=== PATIENT | female | born 1960 ===

== ENCOUNTER 2020-11-24 19:31 | Inpatient (IN) | payer OTHER ==
[~2020-11-24] VITALS: Ht 162.6 cm; Wt 107.0 kg
--- NOTE | 2020-11-24 20:09 | NUR ---
ASSUMED CARE OF PATIENT. PATIENT REPORTS SHE TOOK A HOME COVID TEST AND IT WAS POSTIVE. PT WAS SEEN AT TODAY AND WAS FOUND TO BE 80% RA. PT SENT TO THE ER. FAMILY AT BEDSIDE. EKG DONE DR BAKER HAS SEEN IT. AIRPORT OPERATIONS SPECIALIST ON. NSR NOTED. PULSE OX ON. OXYGEN ON AT 3L NC. VS STABLE. CALL LIGHT IN PLACE. WILL CONTINUE TO MONITOR.
[2020-11-24] MEDS ORDERED: DEXAMETHASONE 4 MG/ML, 1ML IVPush ONE (20:30)
[2020-11-24] MEDS ORDERED: AZITHROMYCIN 500 MG in SODIUM CHLORIDE 0.9% 250 ML IV ONE (20:30)
[2020-11-24 20:32] LABS: BASOPHILS % (AUTO) 0 % (0-1); EOSINOPHILS % (AUTO) 0 % (1-7); LYMPHOCYTES % (AUTO) 24 % (22-44); MEAN CORPUSCULAR HEMOGLOBIN 28.2 pg (27.0-34.8); MEAN CORPUSCULAR HGB CONC 33.4 g/dL (32.4-35.8); MEAN PLATELET VOLUME 7.3 fL (7.4-10.4); MONOCYTES % (AUTO) 5 % (2-9); NEUTROPHILS % (AUTO) 71 % (42-75); PLATELET COUNT 263 x10^3/uL (130-400); RED BLOOD COUNT 4.81 x10^6/uL (3.82-5.3); RED CELL DISTRIBUTION WIDTH 14.5 % (9.6-15.2)
[2020-11-24 20:39] LABS: ALANINE AMINOTRANSFERASE 109 U/L (12-78); ALBUMIN 2.9 g/dL (3.4-5.0); ANION GAP 7 mmol/L (5-15); CALCIUM 8.4 mg/dL (8.5-10.1); CHLORIDE 99 mmol/L (98-107); CREATININE 0.84 mg/dL (0.55-1.02)
[2020-11-24] MEDS ORDERED: DEXAMETHASONE 4 MG/ML, 5ML ONE (20:40)
[2020-11-24 20:43] LABS: ALKALINE PHOSPHATASE 81 U/L (45-117); BILIRUBIN,TOTAL 0.3 mg/dL (0.2-1.0); TOTAL PROTEIN 7.4 g/dL (6.4-8.2); TROPONIN I < 0.015 ng/mL (0.000-0.045)
--- NOTE | 2020-11-24 21:06 | NUR ---
PER DR BAKER NO BLOOD CULTURES
[2020-11-24] MEDS ORDERED: SODIUM CHLORIDE FLUSH 10ML SYR IVF PRN (21:30)
--- NOTE | 2020-11-24 21:33 | NUR ---
HOSPITALIST IN ROOM
--- NOTE | 2020-11-24 21:53 | NUR ---
IVAN: [phone]
[2020-11-24] MEDS ORDERED: PHARMACY MAY ADJ FOR RENAL FX MC PRN (22:00)
[2020-11-24] MEDS ORDERED: GUAIFENESIN/DM 200-20MG, 10ML UDC PO PRN (22:00)
[2020-11-24] MEDS ORDERED: LABETALOL 5MG/ML, 20ML IVPush PRN (22:00)
[2020-11-24] MEDS ORDERED: KETOROLAC 30 MG/1 ML IV PRN (22:00)
[2020-11-24] MEDS ORDERED: ONDANSETRON 2MG/ML, 2ML IVPush PRN (22:00)
[2020-11-24] MEDS ORDERED: MELATONIN 5 MG TABLET PO PRN (22:00)
[2020-11-24] MEDS ORDERED: ACETAMINOPHEN 650 MG SUPP PR PRN (22:00)
--- NOTE | 2020-11-24 22:03 | NUR ---
PT RESTING IN ROOM. VS STABLE. OXYGEN ON. REPORT CALLED INTO JOSE ANTONIO CAREY. CALL LIGHT IN PLACE WILL CONTINUE TO MONITOR.
[2020-11-24] MEDS ORDERED: ACETAMINOPHEN 325 MG TABLET ONE (22:11)
[2020-11-24] MEDS: ACETAMINOPHEN 325 MG TABLET PO PRN (22:14)
--- NOTE | 2020-11-24 22:18 | NUR ---
DR PRABHAKAR AWARE OF VS. PT TO GO TO [facility] NOW. PER PROVIDER NO BLOOD CULTURES NEEDED. VS STABLE. BEAN ROASTER ON. NSR NOTED. CALL LIGHT IN PLACE. WILL CONTINUE TO MONITOR.
[2020-11-24] MEDS ORDERED: REMDESIVIR 200 MG in SODIUM CHLORIDE 0.9% 250 ML IVPB ONE (22:30)
[2020-11-24] MEDS ORDERED: DEXAMETHASONE 4 MG/ML, 1ML IVPush SCH (22:30)
[2020-11-24] MEDS ORDERED: ASCORBIC ACID 500 MG TABLET ONE (22:38)
[2020-11-24] MEDS: ENOXAPARIN 30 MG/0.3 ML SQ SCH (22:43)
[2020-11-24] MEDS: ASCORBIC ACID 500 MG TABLET PO SCH (22:45)
[2020-11-24] MEDS: FAMOTIDINE 20 MG/2 ML IVPush SCH (22:46)
--- NOTE | 2020-11-24 23:28 | NUR ---
REPORT CALLED INTO JOSE ANTONIO WEEKS
[2020-11-25] MEDS: ALBUTEROL-IPRATROPIUM MDI INH INH SCH ×5 (00:10→20:30)
[2020-11-25 00:20] VITALS: BP 118/75
[2020-11-25] MEDS: DEXAMETHASONE 4 MG/ML, 1ML IVPush SCH ×4 (01:43→20:22)
[2020-11-25] MEDS: INSULIN LISPRO 100 UNITS/ML, PEN SQ-INSULIN SCH ×5 (01:43→20:30)
[2020-11-25 06:28] LABS: BASOPHILS % (AUTO) 0 % (0-1); EOSINOPHILS % (AUTO) 0 % (1-7); LYMPHOCYTES % (AUTO) 24 % (22-44); MEAN CORPUSCULAR HEMOGLOBIN 28.5 pg (27.0-34.8); MEAN CORPUSCULAR HGB CONC 33.7 g/dL (32.4-35.8); MEAN PLATELET VOLUME 7.5 fL (7.4-10.4); MONOCYTES % (AUTO) 3 % (2-9); NEUTROPHILS % (AUTO) 73 % (42-75); PLATELET COUNT 257 x10^3/uL (130-400); RED BLOOD COUNT 4.77 x10^6/uL (3.82-5.3); RED CELL DISTRIBUTION WIDTH 14.4 % (9.6-15.2)
[2020-11-25 06:39] LABS: ALBUMIN 2.8 g/dL (3.4-5.0); ANION GAP 8 mmol/L (5-15); CALCIUM 8.6 mg/dL (8.5-10.1); CHLORIDE 102 mmol/L (98-107)
[2020-11-25 06:44] LABS: ALANINE AMINOTRANSFERASE 107 U/L (12-78); ALKALINE PHOSPHATASE 84 U/L (45-117); BILIRUBIN,TOTAL 0.3 mg/dL (0.2-1.0); CREATININE 0.69 mg/dL (0.55-1.02); TOTAL PROTEIN 7.5 g/dL (6.4-8.2)
[2020-11-25] MEDS: ZINC SULFATE 220 MG CAPSULE PO SCH (08:15)
[2020-11-25] MEDS: FAMOTIDINE 20 MG/2 ML IVPush SCH (08:15)
[2020-11-25] MEDS: CHOLECALCIFEROL 5,000u TAB PO SCH (08:16)
[2020-11-25] MEDS: ASCORBIC ACID 500 MG TABLET PO SCH ×2 (08:16→20:22)
[2020-11-25] MEDS: THIAMINE 100MG TABLET PO SCH (08:16)
[2020-11-25 09:11] VITALS: BP 128/82
[2020-11-25] MEDS: FLUTICASONE/VILANTEROL 100-25MCG/INH INH SCH (11:00)
[2020-11-25] MEDS: ENOXAPARIN 30 MG/0.3 ML SQ SCH ×2 (11:00→22:51)
[2020-11-25 12:17] VITALS: BP 130/77
[2020-11-25] MEDS: FAMOTIDINE 20 MG TABLET PO SCH (20:22)
[2020-11-25 20:32] VITALS: BP 121/76
[2020-11-25] MEDS ORDERED: MELATONIN 5 MG TABLET PO SCH (21:00)
[2020-11-25] MEDS: REMDESIVIR 100 MG in SODIUM CHLORIDE 0.9% 250 ML IVPB SCH (22:50)
[2020-11-26] MEDS: DEXAMETHASONE 4 MG/ML, 1ML IVPush SCH ×4 (03:22→20:24)
[2020-11-26 03:37] VITALS: BP 119/75
[2020-11-26] MEDS ORDERED: LORazepam 1MG TABLET PO ONE (06:00)
[2020-11-26] MEDS: ALBUTEROL-IPRATROPIUM MDI INH INH SCH ×4 (06:00→20:24)
[2020-11-26 06:16] LABS: HCT (SEDRATE) 40.1 % (34.6-47.8)
[2020-11-26 06:22] LABS: BASOPHILS % (AUTO) 0 % (0-1); EOSINOPHILS % (AUTO) 0 % (1-7); LYMPHOCYTES % (AUTO) 14 % (22-44); MEAN CORPUSCULAR HEMOGLOBIN 28.5 pg (27.0-34.8); MEAN CORPUSCULAR HGB CONC 33.5 g/dL (32.4-35.8); MEAN PLATELET VOLUME 7.6 fL (7.4-10.4); MONOCYTES % (AUTO) 5 % (2-9); NEUTROPHILS % (AUTO) 81 % (42-75); PLATELET COUNT 337 x10^3/uL (130-400); RED BLOOD COUNT 4.72 x10^6/uL (3.82-5.3); RED CELL DISTRIBUTION WIDTH 14.8 % (9.6-15.2)
[2020-11-26 06:28] LABS: ALBUMIN 2.8 g/dL (3.4-5.0); ANION GAP 10 mmol/L (5-15); CALCIUM 8.7 mg/dL (8.5-10.1); CHLORIDE 103 mmol/L (98-107)
[2020-11-26 06:33] LABS: ALANINE AMINOTRANSFERASE 93 U/L (12-78); ALKALINE PHOSPHATASE 77 U/L (45-117); BILIRUBIN,TOTAL 0.3 mg/dL (0.2-1.0); CREATININE 0.78 mg/dL (0.55-1.02); TOTAL PROTEIN 7.3 g/dL (6.4-8.2)
[2020-11-26 06:36] LABS: C-REACTIVE PROTEIN, QUANT 4.4 mg/dL (0.02-0.49)
[2020-11-26 08:07] VITALS: BP 104/67
[2020-11-26] MEDS: FLUTICASONE/VILANTEROL 100-25MCG/INH INH SCH (08:16)
[2020-11-26] MEDS: ZINC SULFATE 220 MG CAPSULE PO SCH (08:16)
[2020-11-26] MEDS: CHOLECALCIFEROL 5,000u TAB PO SCH (08:16)
[2020-11-26] MEDS: ASCORBIC ACID 500 MG TABLET PO SCH ×2 (08:16→20:24)
[2020-11-26] MEDS: FAMOTIDINE 20 MG TABLET PO SCH ×2 (08:16→20:24)
[2020-11-26] MEDS: THIAMINE 100MG TABLET PO SCH (08:16)
[2020-11-26] MEDS: INSULIN LISPRO 100 UNITS/ML, PEN SQ-INSULIN SCH ×4 (08:25→20:25)
[2020-11-26] MEDS: ENOXAPARIN 30 MG/0.3 ML SQ SCH ×2 (10:58→22:36)
[2020-11-26 15:31] VITALS: BP 127/77
[2020-11-26] MEDS: TEMAZEPAM 15 MG CAPSULE PO PRN (20:24)
[2020-11-26 20:31] VITALS: BP 109/67
[2020-11-26] MEDS: REMDESIVIR 100 MG in SODIUM CHLORIDE 0.9% 250 ML IVPB SCH (22:36)
[2020-11-27] MEDS: DEXAMETHASONE 4 MG/ML, 1ML IVPush SCH ×4 (02:45→20:48)
[2020-11-27 02:46] VITALS: BP 119/72
[2020-11-27] MEDS: ALBUTEROL-IPRATROPIUM MDI INH INH SCH ×4 (05:46→20:54)
[2020-11-27 06:04] LABS: BASOPHILS % (AUTO) 0 % (0-1); EOSINOPHILS % (AUTO) 0 % (1-7); LYMPHOCYTES % (AUTO) 11 % (22-44); MEAN CORPUSCULAR HEMOGLOBIN 28.7 pg (27.0-34.8); MEAN CORPUSCULAR HGB CONC 33.6 g/dL (32.4-35.8); MEAN PLATELET VOLUME 7.2 fL (7.4-10.4); MONOCYTES % (AUTO) 5 % (2-9); NEUTROPHILS % (AUTO) 85 % (42-75); PLATELET COUNT 323 x10^3/uL (130-400); RED BLOOD COUNT 4.42 x10^6/uL (3.82-5.3); RED CELL DISTRIBUTION WIDTH 14.7 % (9.6-15.2)
[2020-11-27 06:18] LABS: CHLORIDE 106 mmol/L (98-107)
[2020-11-27 06:33] LABS: ALANINE AMINOTRANSFERASE 104 U/L (12-78); ALBUMIN 2.6 g/dL (3.4-5.0); ALKALINE PHOSPHATASE 74 U/L (45-117); ANION GAP 9 mmol/L (5-15); BILIRUBIN,TOTAL 0.3 mg/dL (0.2-1.0); CALCIUM 8.4 mg/dL (8.5-10.1); CREATININE 0.72 mg/dL (0.55-1.02); TOTAL PROTEIN 6.5 g/dL (6.4-8.2)
[2020-11-27 07:55] VITALS: BP 134/76
[2020-11-27] MEDS: INSULIN LISPRO 100 UNITS/ML, PEN SQ-INSULIN SCH ×4 (09:23→20:49)
[2020-11-27] MEDS: THIAMINE 100MG TABLET PO SCH (09:28)
[2020-11-27] MEDS: CHOLECALCIFEROL 5,000u TAB PO SCH (09:28)
[2020-11-27] MEDS: ASCORBIC ACID 500 MG TABLET PO SCH ×2 (09:28→20:48)
[2020-11-27] MEDS: FAMOTIDINE 20 MG TABLET PO SCH ×2 (09:28→20:48)
[2020-11-27] MEDS: ZINC SULFATE 220 MG CAPSULE PO SCH (09:29)
[2020-11-27] MEDS: ENOXAPARIN 30 MG/0.3 ML SQ SCH ×2 (09:29→22:33)
[2020-11-27] MEDS: FLUTICASONE/VILANTEROL 100-25MCG/INH INH SCH (09:30)
[2020-11-27] MEDS: ACETAMINOPHEN 325 MG TABLET PO PRN (09:36)
[2020-11-27 13:50] VITALS: BP 128/79
[2020-11-27] MEDS: TEMAZEPAM 15 MG CAPSULE PO PRN ×2 (20:48→23:24)
[2020-11-27] MEDS: INSULIN GLARGINE 100 UNITS/ML, PEN SQ-INSULIN SCH (20:49)
[2020-11-27 20:54] VITALS: BP 134/74
[2020-11-27] MEDS: REMDESIVIR 100 MG in SODIUM CHLORIDE 0.9% 250 ML IVPB SCH (22:33)
[2020-11-28] MEDS: DEXAMETHASONE 4 MG/ML, 1ML IVPush SCH ×4 (02:50→21:15)
[2020-11-28 02:52] VITALS: BP 142/83
[2020-11-28] MEDS: ALBUTEROL-IPRATROPIUM MDI INH INH SCH ×3 (04:54→21:16)
[2020-11-28 05:19] LABS: BASOPHILS % (AUTO) 0 % (0-1); EOSINOPHILS % (AUTO) 0 % (1-7); LYMPHOCYTES % (AUTO) 8 % (22-44); MEAN CORPUSCULAR HEMOGLOBIN 28.4 pg (27.0-34.8); MEAN CORPUSCULAR HGB CONC 33.4 g/dL (32.4-35.8); MEAN PLATELET VOLUME 7.1 fL (7.4-10.4); MONOCYTES % (AUTO) 6 % (2-9); NEUTROPHILS % (AUTO) 85 % (42-75); PLATELET COUNT 333 x10^3/uL (130-400); RED BLOOD COUNT 4.77 x10^6/uL (3.82-5.3); RED CELL DISTRIBUTION WIDTH 14.8 % (9.6-15.2)
[2020-11-28 05:30] LABS: ALBUMIN 2.6 g/dL (3.4-5.0); ANION GAP 8 mmol/L (5-15); CALCIUM 8.8 mg/dL (8.5-10.1); CHLORIDE 105 mmol/L (98-107)
[2020-11-28 05:38] LABS: ALANINE AMINOTRANSFERASE 186 U/L (12-78); ALKALINE PHOSPHATASE 84 U/L (45-117); BILIRUBIN,TOTAL 0.3 mg/dL (0.2-1.0); TOTAL PROTEIN 6.7 g/dL (6.4-8.2)
[2020-11-28 06:05] LABS: HCT (SEDRATE) 40.7 % (34.6-47.8)
[2020-11-28 08:50] VITALS: BP 129/83
[2020-11-28] MEDS: FLUTICASONE/VILANTEROL 100-25MCG/INH INH SCH (10:06)
[2020-11-28] MEDS: ENOXAPARIN 30 MG/0.3 ML SQ SCH ×2 (10:07→21:14)
[2020-11-28] MEDS: FAMOTIDINE 20 MG TABLET PO SCH ×2 (10:07→21:15)
[2020-11-28] MEDS: ZINC SULFATE 220 MG CAPSULE PO SCH (10:07)
[2020-11-28] MEDS: CHOLECALCIFEROL 5,000u TAB PO SCH (10:07)
[2020-11-28] MEDS: THIAMINE 100MG TABLET PO SCH (10:07)
[2020-11-28] MEDS: ASCORBIC ACID 500 MG TABLET PO SCH ×2 (10:07→21:15)
[2020-11-28] MEDS: INSULIN LISPRO 100 UNITS/ML, PEN SQ-INSULIN SCH ×4 (10:08→21:29)
[2020-11-28 15:00] VITALS: BP 133/78
[2020-11-28 20:50] VITALS: BP 135/80
[2020-11-28] MEDS: INSULIN GLARGINE 100 UNITS/ML, PEN SQ-INSULIN SCH (21:28)
[2020-11-28] MEDS: TEMAZEPAM 15 MG CAPSULE PO PRN (21:53)
[2020-11-28] MEDS: REMDESIVIR 100 MG in SODIUM CHLORIDE 0.9% 250 ML IVPB SCH (23:37)
[2020-11-29 02:25] VITALS: BP 128/76
[2020-11-29] MEDS: DEXAMETHASONE 4 MG/ML, 1ML IVPush SCH ×4 (02:38→20:38)
[2020-11-29 05:22] LABS: HCT (SEDRATE) 41.8 % (34.6-47.8)
[2020-11-29 05:30] LABS: BASOPHILS % (AUTO) 0 % (0-1); EOSINOPHILS % (AUTO) 0 % (1-7); LYMPHOCYTES % (AUTO) 10 % (22-44); MEAN CORPUSCULAR HEMOGLOBIN 28.6 pg (27.0-34.8); MEAN CORPUSCULAR HGB CONC 33.7 g/dL (32.4-35.8); MEAN PLATELET VOLUME 7.2 fL (7.4-10.4); MONOCYTES % (AUTO) 7 % (2-9); NEUTROPHILS % (AUTO) 84 % (42-75); PLATELET COUNT 336 x10^3/uL (130-400); RED BLOOD COUNT 4.97 x10^6/uL (3.82-5.3); RED CELL DISTRIBUTION WIDTH 14.6 % (9.6-15.2)
[2020-11-29 05:36] LABS: ALANINE AMINOTRANSFERASE 178 U/L (12-78); ALBUMIN 2.6 g/dL (3.4-5.0); ANION GAP 8 mmol/L (5-15); CALCIUM 8.7 mg/dL (8.5-10.1); CHLORIDE 105 mmol/L (98-107); CREATININE 0.73 mg/dL (0.55-1.02)
[2020-11-29 05:45] LABS: ALKALINE PHOSPHATASE 91 U/L (45-117); BILIRUBIN,TOTAL 0.3 mg/dL (0.2-1.0); C-REACTIVE PROTEIN, QUANT 0.66 mg/dL (0.02-0.49); TOTAL PROTEIN 6.8 g/dL (6.4-8.2)
[2020-11-29] MEDS: ALBUTEROL-IPRATROPIUM MDI INH INH SCH ×4 (06:07→22:35)
[2020-11-29] MEDS: ZINC SULFATE 220 MG CAPSULE PO SCH (08:11)
[2020-11-29] MEDS: CHOLECALCIFEROL 5,000u TAB PO SCH (08:11)
[2020-11-29] MEDS: THIAMINE 100MG TABLET PO SCH (08:12)
[2020-11-29] MEDS: FAMOTIDINE 20 MG TABLET PO SCH ×2 (08:12→20:38)
[2020-11-29] MEDS: ASCORBIC ACID 500 MG TABLET PO SCH ×2 (08:12→20:38)
[2020-11-29] MEDS: INSULIN LISPRO 100 UNITS/ML, PEN SQ-INSULIN SCH ×4 (08:26→22:42)
[2020-11-29 09:19] VITALS: BP 101/56
[2020-11-29] MEDS: ENOXAPARIN 30 MG/0.3 ML SQ SCH ×2 (10:18→20:37)
[2020-11-29] MEDS: FLUTICASONE/VILANTEROL 100-25MCG/INH INH SCH (10:19)
[2020-11-29 13:08] VITALS: BP 106/68
[2020-11-29 15:46] VITALS: BP 116/74
[2020-11-29] MEDS ORDERED: LORazepam 0.5MG TABLET PO ONE (16:30)
[2020-11-29 20:00] VITALS: BP 121/48
[2020-11-29] MEDS: TEMAZEPAM 15 MG CAPSULE PO PRN (20:36)
[2020-11-29] MEDS: INSULIN GLARGINE 100 UNITS/ML, PEN SQ-INSULIN SCH (22:38)
[2020-11-30] MEDS: DEXAMETHASONE 4 MG/ML, 1ML IVPush SCH ×4 (02:29→21:25)
[2020-11-30 02:40] VITALS: BP 118/72
[2020-11-30] MEDS: ALBUTEROL-IPRATROPIUM MDI INH INH SCH ×4 (06:05→21:27)
[2020-11-30 06:15] LABS: BASOPHILS % (AUTO) 0 % (0-1); EOSINOPHILS % (AUTO) 0 % (1-7); LYMPHOCYTES % (AUTO) 9 % (22-44); MEAN CORPUSCULAR HEMOGLOBIN 27.9 pg (27.0-34.8); MEAN CORPUSCULAR HGB CONC 32.9 g/dL (32.4-35.8); MEAN PLATELET VOLUME 7.1 fL (7.4-10.4); MONOCYTES % (AUTO) 6 % (2-9); NEUTROPHILS % (AUTO) 85 % (42-75); PLATELET COUNT 336 x10^3/uL (130-400); RED BLOOD COUNT 5.09 x10^6/uL (3.82-5.3); RED CELL DISTRIBUTION WIDTH 14.5 % (9.6-15.2)
[2020-11-30 06:18] LABS: CHLORIDE 103 mmol/L (98-107)
[2020-11-30 06:31] LABS: ALANINE AMINOTRANSFERASE 141 U/L (12-78); ALBUMIN 2.6 g/dL (3.4-5.0); ALKALINE PHOSPHATASE 88 U/L (45-117); ANION GAP 8 mmol/L (5-15); BILIRUBIN,TOTAL 0.4 mg/dL (0.2-1.0); CALCIUM 8.6 mg/dL (8.5-10.1); TOTAL PROTEIN 6.6 g/dL (6.4-8.2)
[2020-11-30 06:42] VITALS: BP 105/67
[2020-11-30] MEDS ORDERED: LORazepam 2 MG/ML, 1ML IVPush ONE (07:00)
[2020-11-30] MEDS ORDERED: LORazepam 2 MG/ML, 1ML IVPush PRN (07:00)
[2020-11-30] MEDS: ASCORBIC ACID 500 MG TABLET PO SCH ×2 (08:07→21:26)
[2020-11-30] MEDS: THIAMINE 100MG TABLET PO SCH (08:07)
[2020-11-30] MEDS: ZINC SULFATE 220 MG CAPSULE PO SCH (08:07)
[2020-11-30] MEDS: FAMOTIDINE 20 MG TABLET PO SCH ×2 (08:07→21:25)
[2020-11-30] MEDS: FLUTICASONE/VILANTEROL 100-25MCG/INH INH SCH (08:07)
[2020-11-30] MEDS: CHOLECALCIFEROL 5,000u TAB PO SCH (08:07)
[2020-11-30] MEDS: INSULIN LISPRO 100 UNITS/ML, PEN SQ-INSULIN SCH ×4 (08:08→21:36)
[2020-11-30 08:11] LABS: FIO2 88 %
[2020-11-30] MEDS: ENOXAPARIN 30 MG/0.3 ML SQ SCH ×2 (08:17→21:26)
[2020-11-30] MEDS ORDERED: LORazepam 0.5MG TABLET PO PRN ×2 (12:00→18:00)
[2020-11-30 14:20] VITALS: BP 122/75
[2020-11-30] MEDS ORDERED: INSULIN LISPRO 100 UNITS/ML, PEN SQ-INSULIN SCH (16:00)
[2020-11-30 21:00] VITALS: BP 118/72
[2020-11-30] MEDS: TEMAZEPAM 15 MG CAPSULE PO PRN (21:25)
[2020-11-30] MEDS: INSULIN GLARGINE 100 UNITS/ML, PEN SQ-INSULIN SCH (21:37)
[2020-12-01] VITALS (7 sets, daily range): BP systolic 104–148; BP diastolic 58–93
[2020-12-01] MEDS: DEXAMETHASONE 4 MG/ML, 1ML IVPush SCH ×3 (02:57→17:45)
[2020-12-01] MEDS: ALBUTEROL-IPRATROPIUM MDI INH INH SCH ×2 (05:11→12:38)
[2020-12-01 06:21] LABS: MEAN CORPUSCULAR HEMOGLOBIN 28.4 pg (27.0-34.8); MEAN CORPUSCULAR HGB CONC 33.7 g/dL (32.4-35.8); MEAN PLATELET VOLUME 6.7 fL (7.4-10.4); PLATELET COUNT 335 x10^3/uL (130-400); RED BLOOD COUNT 4.95 x10^6/uL (3.82-5.3); RED CELL DISTRIBUTION WIDTH 14.4 % (9.6-15.2)
[2020-12-01 06:24] LABS: HCT (SEDRATE) 41.1 % (34.6-47.8)
[2020-12-01 06:35] LABS: ALBUMIN 2.6 g/dL (3.4-5.0); ANION GAP 8 mmol/L (5-15); CALCIUM 8.5 mg/dL (8.5-10.1); CHLORIDE 101 mmol/L (98-107)
[2020-12-01 06:42] LABS: ALANINE AMINOTRANSFERASE 108 U/L (12-78); ALKALINE PHOSPHATASE 87 U/L (45-117); BILIRUBIN,TOTAL 0.5 mg/dL (0.2-1.0); C-REACTIVE PROTEIN, QUANT 0.25 mg/dL (0.02-0.49); CREATININE 0.73 mg/dL (0.55-1.02); TOTAL PROTEIN 6.5 g/dL (6.4-8.2)
[2020-12-01 06:52] LABS: METAMYELOCYTES# (MANUAL) 0.15 x10^3/uL (0-0); METAMYELOCYTES% (MANUAL) 1 % (0-1)
[2020-12-01 06:53] LABS: <RBC MORPHOLOGY> NORMAL; BAND#(MANUAL) 0.44 x10^3/uL; BANDS%(MANUAL) 3 % (0-7); LYMPH#(MANUAL) 0.88 x10^3/uL (1-3.4); LYMPHS% (MANUAL) 6 % (22-44); MONOS#(MANUAL) 0.44 x10^3/uL (0.3-2.7); MONOS% (MANUAL) 3 % (2-9); SEGS% (MANUAL) 87 % (42-75)
[2020-12-01 06:54] LABS: <PLATELET ESTIMATE> ADEQUATE; <PLT MORPHOLOGY> NORMAL PLT MORPH
[2020-12-01] MEDS: ASCORBIC ACID 500 MG TABLET PO SCH ×2 (08:35→19:55)
[2020-12-01] MEDS: FAMOTIDINE 20 MG TABLET PO SCH ×2 (08:35→19:55)
[2020-12-01] MEDS: ZINC SULFATE 220 MG CAPSULE PO SCH (08:35)
[2020-12-01] MEDS: THIAMINE 100MG TABLET PO SCH (08:35)
[2020-12-01] MEDS: CHOLECALCIFEROL 5,000u TAB PO SCH (08:35)
[2020-12-01] MEDS: FLUTICASONE/VILANTEROL 100-25MCG/INH INH SCH (08:36)
[2020-12-01] MEDS: ENOXAPARIN 30 MG/0.3 ML SQ SCH ×2 (08:36→19:55)
[2020-12-01] MEDS: INSULIN LISPRO 100 UNITS/ML, PEN SQ-INSULIN SCH ×4 (08:40→20:32)
[2020-12-01 14:16] LABS: FIO2 100 %
[2020-12-01] MEDS ORDERED: PHARMACY INSTRUCTION MC PRN (18:00)
[2020-12-01] MEDS: REMDESIVIR 100 MG in SODIUM CHLORIDE 0.9% 250 ML IVPB SCH (18:53)
[2020-12-01] MEDS: FUROSEMIDE 20 MG/2 ML IV SCH (19:54)
[2020-12-01] MEDS: MEROPENEM 1 GM in SODIUM CHLORIDE 0.9% 100 ML IV SCH (19:54)
[2020-12-01] MEDS: LINEZOLID PMX 600MG/300ML 300 ML IV SCH (19:54)
[2020-12-01] MEDS: INSULIN GLARGINE 100 UNITS/ML, PEN SQ-INSULIN SCH (20:01)
[2020-12-01] MEDS: TEMAZEPAM 15 MG CAPSULE PO PRN (21:02)
[2020-12-02] MEDS: MEROPENEM 1 GM in SODIUM CHLORIDE 0.9% 100 ML IV SCH ×3 (01:17→17:12)
[2020-12-02 04:24] LABS: MEAN CORPUSCULAR HEMOGLOBIN 29.2 pg (27.0-34.8); MEAN CORPUSCULAR HGB CONC 34.6 g/dL (32.4-35.8); MEAN PLATELET VOLUME 6.7 fL (7.4-10.4); PLATELET COUNT 340 x10^3/uL (130-400); RED BLOOD COUNT 4.78 x10^6/uL (3.82-5.3); RED CELL DISTRIBUTION WIDTH 14.5 % (9.6-15.2)
[2020-12-02 04:31] LABS: D-DIMER 0.84 ug/mlFEU (0.00-0.52)
[2020-12-02 04:33] LABS: ALANINE AMINOTRANSFERASE 80 U/L (12-78); ALBUMIN 2.5 g/dL (3.4-5.0); ANION GAP 8 mmol/L (5-15); C-REACTIVE PROTEIN, QUANT 0.19 mg/dL (0.02-0.49); CALCIUM 8.2 mg/dL (8.5-10.1); CHLORIDE 102 mmol/L (98-107)
[2020-12-02 04:35] LABS: ALKALINE PHOSPHATASE 96 U/L (45-117); BILIRUBIN,TOTAL 0.4 mg/dL (0.2-1.0)
[2020-12-02 05:22] LABS: <PLATELET ESTIMATE> ADEQUATE; <PLT MORPHOLOGY> NORMAL PLT MORPH; <RBC MORPHOLOGY> NORMAL; BAND#(MANUAL) 1.07 x10^3/uL; BANDS%(MANUAL) 6 % (0-7); EOS#(MANUAL) 0.36 x10^3/uL (0.0-0.4); EOS% (MANUAL) 2 % (1-7); LYMPH#(MANUAL) 1.25 x10^3/uL (1-3.4); LYMPHS% (MANUAL) 7 % (22-44); METAMYELOCYTES# (MANUAL) 0.36 x10^3/uL (0-0); METAMYELOCYTES% (MANUAL) 2 % (0-1); MONOS#(MANUAL) 0.71 x10^3/uL (0.3-2.7); MONOS% (MANUAL) 4 % (2-9); SEG#(MANUAL) 14.06 x10^3/uL (1.8-6.8); SEGS% (MANUAL) 79 % (42-75)
[2020-12-02] MEDS: LINEZOLID PMX 600MG/300ML 300 ML IV SCH ×2 (06:05→17:13)
[2020-12-02] MEDS: INSULIN LISPRO 100 UNITS/ML, PEN SQ-INSULIN SCH ×4 (06:12→21:26)
[2020-12-02] MEDS: DEXAMETHASONE 4 MG/ML, 1ML IVPush SCH (09:07)
[2020-12-02] MEDS: FUROSEMIDE 20 MG/2 ML IV SCH ×2 (09:08→17:12)
[2020-12-02] MEDS: CHOLECALCIFEROL 5,000u TAB PO SCH (09:15)
[2020-12-02] MEDS: ENOXAPARIN 30 MG/0.3 ML SQ SCH (09:15)
[2020-12-02] MEDS: ASCORBIC ACID 500 MG TABLET PO SCH ×2 (09:15→21:22)
[2020-12-02] MEDS: ZINC SULFATE 220 MG CAPSULE PO SCH (09:15)
[2020-12-02] MEDS: THIAMINE 100MG TABLET PO SCH (09:15)
[2020-12-02] MEDS: FAMOTIDINE 20 MG TABLET PO SCH ×2 (09:15→21:23)
[2020-12-02] MEDS: POTASSIUM CHLORIDE 20 MEQ PACKET PO SCH ×2 (10:00→21:22)
[2020-12-02] MEDS: REMDESIVIR 100 MG in SODIUM CHLORIDE 0.9% 250 ML IVPB SCH (18:14)
[2020-12-02] MEDS: LORazepam 1MG TABLET PO PRN (18:18)
[2020-12-02] MEDS: TEMAZEPAM 15 MG CAPSULE PO PRN (21:22)
[2020-12-02] MEDS: ENOXAPARIN 40 MG/0.4 ML SQ SCH (21:23)
[2020-12-02] MEDS: INSULIN GLARGINE 100 UNITS/ML, PEN SQ-INSULIN SCH (21:26)
[2020-12-03] MEDS: MEROPENEM 1 GM in SODIUM CHLORIDE 0.9% 100 ML IV SCH ×3 (02:00→17:04)
[2020-12-03 04:49] LABS: BASOPHILS % (AUTO) 0 % (0-1); EOSINOPHILS % (AUTO) 1 % (1-7); LYMPHOCYTES % (AUTO) 10 % (22-44); MEAN CORPUSCULAR HEMOGLOBIN 28.2 pg (27.0-34.8); MEAN CORPUSCULAR HGB CONC 33.4 g/dL (32.4-35.8); MEAN PLATELET VOLUME 6.7 fL (7.4-10.4); MONOCYTES % (AUTO) 4 % (2-9); NEUTROPHILS % (AUTO) 85 % (42-75); PLATELET COUNT 296 x10^3/uL (130-400); RED BLOOD COUNT 5.22 x10^6/uL (3.82-5.3); RED CELL DISTRIBUTION WIDTH 14.5 % (9.6-15.2)
[2020-12-03 05:01] LABS: ALANINE AMINOTRANSFERASE 58 U/L (12-78); ALBUMIN 2.7 g/dL (3.4-5.0); ANION GAP 7 mmol/L (5-15); CALCIUM 8.8 mg/dL (8.5-10.1); CHLORIDE 103 mmol/L (98-107); CREATININE 0.77 mg/dL (0.55-1.02)
[2020-12-03 05:03] LABS: D-DIMER 1.19 ug/mlFEU (0.00-0.52)
[2020-12-03 05:08] LABS: ALKALINE PHOSPHATASE 90 U/L (45-117); BILIRUBIN,TOTAL 0.5 mg/dL (0.2-1.0); TOTAL PROTEIN 6.5 g/dL (6.4-8.2)
[2020-12-03] MEDS: LINEZOLID PMX 600MG/300ML 300 ML IV SCH ×2 (06:05→17:52)
[2020-12-03] MEDS: INSULIN LISPRO 100 UNITS/ML, PEN SQ-INSULIN SCH ×4 (06:32→21:30)
[2020-12-03] MEDS: FUROSEMIDE 20 MG/2 ML IV SCH ×2 (08:55→16:58)
[2020-12-03] MEDS: DEXAMETHASONE 4 MG/ML, 1ML IVPush SCH (08:56)
[2020-12-03] MEDS: CHOLECALCIFEROL 5,000u TAB PO SCH (08:56)
[2020-12-03] MEDS: LORazepam 1MG TABLET PO PRN ×3 (08:56→21:51)
[2020-12-03] MEDS: FAMOTIDINE 20 MG TABLET PO SCH ×2 (08:56→19:32)
[2020-12-03] MEDS: ZINC SULFATE 220 MG CAPSULE PO SCH (08:56)
[2020-12-03] MEDS: ASCORBIC ACID 500 MG TABLET PO SCH ×2 (08:56→19:32)
[2020-12-03] MEDS: POTASSIUM CHLORIDE 20 MEQ PACKET PO SCH (08:56)
[2020-12-03] MEDS: THIAMINE 100MG TABLET PO SCH (08:56)
[2020-12-03] MEDS ORDERED: LACTULOSE 20 GM/30 ML UDC PO PRN (09:00)
[2020-12-03] MEDS: DOCUSATE 100 MG CAPSULE PO SCH (10:41)
[2020-12-03] MEDS: ENOXAPARIN 40 MG/0.4 ML SQ SCH (10:41)
[2020-12-03 11:23] LABS: MICROSCOPIC NOT IND
[2020-12-03] MEDS: REMDESIVIR 100 MG in SODIUM CHLORIDE 0.9% 250 ML IVPB SCH (17:52)
[2020-12-03] MEDS: SENNA/DOCUSATE TABLET PO SCH (19:32)
[2020-12-03] MEDS ORDERED: BISACODYL 10 MG SUPP PR PRN (21:00)
[2020-12-03] MEDS ORDERED: POTASSIUM CHLORIDE 20 MEQ TAB.ER.PRT PO SCH (21:00)
[2020-12-03] MEDS: ENOXAPARIN 60 MG/0.6 ML SQ SCH (21:28)
[2020-12-03] MEDS: INSULIN GLARGINE 100 UNITS/ML, PEN SQ-INSULIN SCH (21:30)
[2020-12-03] MEDS: TEMAZEPAM 15 MG CAPSULE PO PRN (21:51)
[2020-12-04] MEDS: MEROPENEM 1 GM in SODIUM CHLORIDE 0.9% 100 ML IV SCH ×3 (02:23→16:55)
[2020-12-04 04:27] LABS: BASOPHILS % (AUTO) 1 % (0-1); EOSINOPHILS % (AUTO) 1 % (1-7); LYMPHOCYTES % (AUTO) 11 % (22-44); MEAN CORPUSCULAR HEMOGLOBIN 28.3 pg (27.0-34.8); MEAN CORPUSCULAR HGB CONC 33.8 g/dL (32.4-35.8); MEAN PLATELET VOLUME 6.9 fL (7.4-10.4); MONOCYTES % (AUTO) 3 % (2-9); NEUTROPHILS % (AUTO) 84 % (42-75); PLATELET COUNT 281 x10^3/uL (130-400); RED BLOOD COUNT 5.31 x10^6/uL (3.82-5.3); RED CELL DISTRIBUTION WIDTH 14.5 % (9.6-15.2)
[2020-12-04 04:39] LABS: ALANINE AMINOTRANSFERASE 52 U/L (12-78); ALBUMIN 2.6 g/dL (3.4-5.0); ANION GAP 5 mmol/L (5-15); CALCIUM 8.4 mg/dL (8.5-10.1); CHLORIDE 98 mmol/L (98-107); CREATININE 0.62 mg/dL (0.55-1.02)
[2020-12-04 04:42] LABS: ALKALINE PHOSPHATASE 88 U/L (45-117); BILIRUBIN,TOTAL 0.6 mg/dL (0.2-1.0)
[2020-12-04] MEDS: INSULIN LISPRO 100 UNITS/ML, PEN SQ-INSULIN SCH ×4 (05:43→21:14)
[2020-12-04] MEDS: LINEZOLID PMX 600MG/300ML 300 ML IV SCH (05:46)
[2020-12-04] MEDS: LORazepam 1MG TABLET PO PRN (06:33)
[2020-12-04] MEDS: INSULIN GLARGINE 100 UNITS/ML, PEN SQ-INSULIN SCH ×2 (09:05→18:06)
[2020-12-04] MEDS: CHOLECALCIFEROL 5,000u TAB PO SCH (09:06)
[2020-12-04] MEDS: ASCORBIC ACID 500 MG TABLET PO SCH (09:06)
[2020-12-04] MEDS: ZINC SULFATE 220 MG CAPSULE PO SCH (09:06)
[2020-12-04] MEDS: THIAMINE 100MG TABLET PO SCH (09:06)
[2020-12-04] MEDS: ENOXAPARIN 60 MG/0.6 ML SQ SCH ×2 (09:06→21:11)
[2020-12-04] MEDS: FUROSEMIDE 20 MG/2 ML IV SCH ×2 (09:06→16:38)
[2020-12-04] MEDS: DEXAMETHASONE 4 MG/ML, 1ML IVPush SCH (09:07)
[2020-12-04] MEDS: FAMOTIDINE 20 MG TABLET PO SCH ×2 (09:07→21:11)
[2020-12-04] MEDS: DOCUSATE 100 MG CAPSULE PO SCH (09:07)
[2020-12-04] MEDS: POTASSIUM CHLORIDE 20 MEQ PACKET PO SCH ×2 (09:12→16:38)
[2020-12-04] MEDS: GUAIFENESIN/COD200MG-20MG/10ML LIQUID PO PRN ×2 (09:22→16:53)
[2020-12-04] MEDS ORDERED: TOCILIZUMAB 800 MG in SODIUM CHLORIDE 0.9% 100 ML SQ ONE (10:00)
[2020-12-04] MEDS ORDERED: MORPHINE SULFATE 4 MG/ML, 1ML IV PRN (13:30)
[2020-12-04] MEDS: REMDESIVIR 100 MG in SODIUM CHLORIDE 0.9% 250 ML IVPB SCH (18:04)
[2020-12-04] MEDS: TEMAZEPAM 15 MG CAPSULE PO PRN (21:11)
[2020-12-04] MEDS: SENNA/DOCUSATE TABLET PO SCH (21:11)
[2020-12-05] MEDS: MEROPENEM 1 GM in SODIUM CHLORIDE 0.9% 100 ML IV SCH ×3 (01:11→18:15)
[2020-12-05 04:41] LABS: BASOPHILS % (AUTO) 0 % (0-1); EOSINOPHILS % (AUTO) 2 % (1-7); LYMPHOCYTES % (AUTO) 15 % (22-44); MEAN CORPUSCULAR HEMOGLOBIN 27.6 pg (27.0-34.8); MEAN CORPUSCULAR HGB CONC 32.7 g/dL (32.4-35.8); MEAN PLATELET VOLUME 7.2 fL (7.4-10.4); MONOCYTES % (AUTO) 4 % (2-9); NEUTROPHILS % (AUTO) 79 % (42-75); PLATELET COUNT 276 x10^3/uL (130-400); RED BLOOD COUNT 5.14 x10^6/uL (3.82-5.3); RED CELL DISTRIBUTION WIDTH 14.3 % (9.6-15.2)
[2020-12-05 04:44] LABS: ALANINE AMINOTRANSFERASE 122 U/L (12-78); ALBUMIN 2.4 g/dL (3.4-5.0); ANION GAP 7 mmol/L (5-15); CALCIUM 8.3 mg/dL (8.5-10.1); CHLORIDE 97 mmol/L (98-107); CREATININE 0.67 mg/dL (0.55-1.02)
[2020-12-05 04:46] LABS: ALKALINE PHOSPHATASE 148 U/L (45-117); BILIRUBIN,TOTAL 0.6 mg/dL (0.2-1.0); TOTAL PROTEIN 6.6 g/dL (6.4-8.2)
[2020-12-05] MEDS: INSULIN LISPRO 100 UNITS/ML, PEN SQ-INSULIN SCH ×4 (07:00→21:08)
[2020-12-05] MEDS: INSULIN GLARGINE 100 UNITS/ML, PEN SQ-INSULIN SCH ×2 (08:51→18:15)
[2020-12-05] MEDS: FUROSEMIDE 20 MG/2 ML IV SCH ×2 (08:52→16:30)
[2020-12-05] MEDS: DEXAMETHASONE 4 MG/ML, 1ML IVPush SCH (08:55)
[2020-12-05] MEDS: DOCUSATE 100 MG CAPSULE PO SCH (09:00)
[2020-12-05] MEDS: ENOXAPARIN 60 MG/0.6 ML SQ SCH ×2 (09:59→21:09)
[2020-12-05] MEDS: LORazepam 1MG TABLET PO PRN ×2 (10:07→21:33)
[2020-12-06] MEDS: MEROPENEM 1 GM in SODIUM CHLORIDE 0.9% 100 ML IV SCH ×3 (02:06→17:45)
[2020-12-06 05:11] LABS: ANION GAP 7 mmol/L (5-15); CALCIUM 8.9 mg/dL (8.5-10.1); CHLORIDE 97 mmol/L (98-107); CREATININE 0.64 mg/dL (0.55-1.02)
[2020-12-06] MEDS: INSULIN GLARGINE 100 UNITS/ML, PEN SQ-INSULIN SCH ×2 (05:22→20:37)
[2020-12-06] MEDS: INSULIN LISPRO 100 UNITS/ML, PEN SQ-INSULIN SCH ×4 (07:00→20:37)
[2020-12-06] MEDS: DOCUSATE 100 MG CAPSULE PO SCH (07:31)
[2020-12-06] MEDS: FUROSEMIDE 20 MG/2 ML IV SCH ×2 (08:15→17:34)
[2020-12-06] MEDS: DEXAMETHASONE 4 MG/ML, 1ML IVPush SCH (08:15)
[2020-12-06] MEDS: POTASSIUM CHLORIDE 20 MEQ PACKET PO SCH ×2 (08:16→17:35)
[2020-12-06] MEDS: GUAIFENESIN/COD200MG-20MG/10ML LIQUID PO PRN (08:16)
[2020-12-06] MEDS: ENOXAPARIN 60 MG/0.6 ML SQ SCH ×2 (10:27→21:43)
[2020-12-06] MEDS: TEMAZEPAM 15 MG CAPSULE PO PRN (21:43)
[2020-12-06] MEDS: LORazepam 1MG TABLET PO PRN (23:24)
[2020-12-07] MEDS: MEROPENEM 1 GM in SODIUM CHLORIDE 0.9% 100 ML IV SCH (02:19)
[2020-12-07 04:54] LABS: BASOPHILS % (AUTO) 1 % (0-1); EOSINOPHILS % (AUTO) 1 % (1-7); LYMPHOCYTES % (AUTO) 17 % (22-44); MEAN CORPUSCULAR HEMOGLOBIN 28.3 pg (27.0-34.8); MEAN CORPUSCULAR HGB CONC 33.6 g/dL (32.4-35.8); MEAN PLATELET VOLUME 7.1 fL (7.4-10.4); MONOCYTES % (AUTO) 6 % (2-9); NEUTROPHILS % (AUTO) 76 % (42-75); PLATELET COUNT 286 x10^3/uL (130-400); RED BLOOD COUNT 5.12 x10^6/uL (3.82-5.3); RED CELL DISTRIBUTION WIDTH 14.5 % (9.6-15.2)
[2020-12-07 05:01] LABS: ANION GAP 6 mmol/L (5-15); CALCIUM 8.9 mg/dL (8.5-10.1); CHLORIDE 99 mmol/L (98-107); CREATININE 0.63 mg/dL (0.55-1.02)
[2020-12-07] MEDS: DOCUSATE 100 MG CAPSULE PO SCH (07:42)
[2020-12-07] MEDS: INSULIN GLARGINE 100 UNITS/ML, PEN SQ-INSULIN SCH ×2 (07:46→20:27)
[2020-12-07] MEDS: INSULIN LISPRO 100 UNITS/ML, PEN SQ-INSULIN SCH ×4 (07:47→20:02)
[2020-12-07] MEDS: FUROSEMIDE 20 MG/2 ML IV SCH ×2 (08:26→16:47)
[2020-12-07] MEDS: ENOXAPARIN 60 MG/0.6 ML SQ SCH ×2 (10:34→21:53)
[2020-12-07] MEDS: LORazepam 1MG TABLET PO PRN (20:00)
[2020-12-08] MEDS: LORazepam 1MG TABLET PO PRN (03:34)
[2020-12-08 05:13] LABS: ANION GAP 6 mmol/L (5-15); CALCIUM 8.9 mg/dL (8.5-10.1); CHLORIDE 97 mmol/L (98-107); CREATININE 0.63 mg/dL (0.55-1.02)
[2020-12-08] MEDS: INSULIN GLARGINE 100 UNITS/ML, PEN SQ-INSULIN SCH ×2 (07:00→21:03)
[2020-12-08] MEDS: INSULIN LISPRO 100 UNITS/ML, PEN SQ-INSULIN SCH ×4 (07:00→21:03)
[2020-12-08] MEDS: FUROSEMIDE 20 MG/2 ML IV SCH ×2 (07:30→17:17)
[2020-12-08] MEDS ORDERED: FUROSEMIDE 40 MG/4 ML ONE (07:43)
[2020-12-08] MEDS: POTASSIUM CHLORIDE 20 MEQ TAB.ER.PRT PO SCH ×2 (08:00→17:18)
[2020-12-08] MEDS: MULTIVITAMIN 1 TABLET PO SCH (09:00)
[2020-12-08] MEDS: DOCUSATE 100 MG CAPSULE PO SCH (09:00)
[2020-12-08] MEDS: ENOXAPARIN 60 MG/0.6 ML SQ SCH (10:01)
[2020-12-08] MEDS: DEXMEDETOMIDINE 400 MCG in SODIUM CHLORIDE 0.9% 96 ML IV PRN ×2 (10:02→19:50)
[2020-12-08] MEDS: RIVAROXABAN 15 MG TABLET PO SCH (17:18)
[2020-12-09] MEDS: DEXMEDETOMIDINE 400 MCG in SODIUM CHLORIDE 0.9% 96 ML IV PRN (00:17)
[2020-12-09 04:16] LABS: BASOPHILS % (AUTO) 1 % (0-1); EOSINOPHILS % (AUTO) 3 % (1-7); LYMPHOCYTES % (AUTO) 22 % (22-44); MEAN CORPUSCULAR HEMOGLOBIN 28.8 pg (27.0-34.8); MEAN CORPUSCULAR HGB CONC 34.2 g/dL (32.4-35.8); MEAN PLATELET VOLUME 7.4 fL (7.4-10.4); MONOCYTES % (AUTO) 8 % (2-9); NEUTROPHILS % (AUTO) 66 % (42-75); PLATELET COUNT 243 x10^3/uL (130-400); RED BLOOD COUNT 5.44 x10^6/uL (3.82-5.3); RED CELL DISTRIBUTION WIDTH 14.7 % (9.6-15.2)
[2020-12-09] MEDS: INSULIN LISPRO 100 UNITS/ML, PEN SQ-INSULIN SCH ×3 (04:26→20:55)
[2020-12-09 04:29] LABS: ANION GAP 4 mmol/L (5-15); CALCIUM 9.3 mg/dL (8.5-10.1); CHLORIDE 101 mmol/L (98-107); CREATININE 0.72 mg/dL (0.55-1.02)
[2020-12-09] MEDS: DEXMEDETOMIDINE 1,000 MCG in SODIUM CHLORIDE 0.9% 240 ML IV PRN ×2 (04:57→05:07)
[2020-12-09] MEDS: RIVAROXABAN 15 MG TABLET PO SCH ×2 (08:00→18:18)
[2020-12-09] MEDS: DOCUSATE 100 MG CAPSULE PO SCH (08:00)
[2020-12-09] MEDS: INSULIN GLARGINE 100 UNITS/ML, PEN SQ-INSULIN SCH ×2 (08:00→20:55)
[2020-12-09] MEDS: MULTIVITAMIN 1 TABLET PO SCH (08:00)
[2020-12-09] MEDS: FUROSEMIDE 20 MG/2 ML IV SCH ×2 (08:00→18:18)
[2020-12-09] MEDS ORDERED: FENTANYL PF 100 MCG/2ML ONE (10:27)
[2020-12-09] MEDS ORDERED: NOREPINEPHRINE 1 MG/ML, 4ML ONE (10:44)
[2020-12-09] MEDS ORDERED: DEXTROSE 4 GM TAB.CHEW PO PRN (12:00)
[2020-12-09] MEDS ORDERED: GLUCAGON 1 MG IM PRN (12:00)
[2020-12-09] MEDS ORDERED: PHARMACY MAY ADJ FOR RENAL FX MC SCH (12:00)
[2020-12-09] MEDS ORDERED: LIDOCAINE-MPF 1%, 2ML ENDO PRN (12:00)
[2020-12-09] MEDS ORDERED: DEXTROSE 50%, 50ML SYRINGE IVPush PRN (12:00)
[2020-12-09] MEDS ORDERED: ETOMIDATE 20 MG/10 ML ONE (12:14)
[2020-12-09] MEDS ORDERED: 0.9 % SODIUM CHLORIDE 10 ML VIAL ONE (12:14)
[2020-12-09] MEDS ORDERED: PROPOFOL 10 MG/ML, 100ML IV ONE (12:14)
[2020-12-09] MEDS ORDERED: MIDAZOLAM 1 MG/ML, 5ML ONE (12:14)
--- NOTE | 2020-12-09 13:40 | NUR ---
Tube Feeding: Vital HP: goal on propofol: 45 ml/hr, off propofol 55 ml/hr Addendum: 12/09/20 at [address] Amended: Links added.
[2020-12-09] MEDS: SODIUM CHLORIDE FLUSH 10ML SYR IVF SCH ×2 (14:10→20:51)
[2020-12-09] MEDS: PROPOFOL 100 ML IV PRN ×3 (14:13→23:02)
[2020-12-10] MEDS: FENTANYL PF 1,000 MCG in SODIUM CHLORIDE 0.9% 80 ML IV PRN ×2 (02:24→14:33)
[2020-12-10] MEDS: INSULIN LISPRO 100 UNITS/ML, PEN SQ-INSULIN SCH ×4 (02:24→19:44)
[2020-12-10] MEDS: PROPOFOL 100 ML IV PRN ×4 (04:03→22:25)
[2020-12-10 05:08] LABS: BASOPHILS % (AUTO) 1 % (0-1); EOSINOPHILS % (AUTO) 3 % (1-7); LYMPHOCYTES % (AUTO) 14 % (22-44); MEAN CORPUSCULAR HEMOGLOBIN 28.3 pg (27.0-34.8); MEAN CORPUSCULAR HGB CONC 32.9 g/dL (32.4-35.8); MEAN PLATELET VOLUME 7.3 fL (7.4-10.4); MONOCYTES % (AUTO) 6 % (2-9); NEUTROPHILS % (AUTO) 77 % (42-75); PLATELET COUNT 245 x10^3/uL (130-400); RED BLOOD COUNT 4.85 x10^6/uL (3.82-5.3); RED CELL DISTRIBUTION WIDTH 14.4 % (9.6-15.2)
[2020-12-10 05:14] LABS: ANION GAP 7 mmol/L (5-15); CALCIUM 7.5 mg/dL (8.5-10.1); CHLORIDE 104 mmol/L (98-107); CREATININE 0.94 mg/dL (0.55-1.02)
[2020-12-10] MEDS: FUROSEMIDE 20 MG/2 ML IV SCH ×2 (07:55→16:52)
[2020-12-10] MEDS: POTASSIUM CHLORIDE 20 MEQ PACKET PO SCH ×2 (07:55→16:51)
[2020-12-10] MEDS: MULTIVITAMIN 1 TABLET PO SCH (07:55)
[2020-12-10] MEDS: RIVAROXABAN 15 MG TABLET PO SCH ×2 (07:55→16:51)
[2020-12-10] MEDS: SODIUM CHLORIDE FLUSH 10ML SYR IVF SCH ×2 (07:56→19:44)
[2020-12-10] MEDS: INSULIN GLARGINE 100 UNITS/ML, PEN SQ-INSULIN SCH ×2 (07:56→19:45)
[2020-12-10] MEDS: DOCUSATE 100 MG CAPSULE PO SCH (07:56)
[2020-12-10 08:21] LABS: MICROSCOPIC INDICATED
[2020-12-10] MEDS ORDERED: FILTER 0.22 MICRON IV ONE (13:00)
[2020-12-10] MEDS ORDERED: TOCILIZUMAB 800 MG in SODIUM CHLORIDE 0.9% 100 ML IVPB ONE (13:30)
[2020-12-10] MEDS ORDERED: VECURONIUM 10 MG IVPush ONE (20:00)
[2020-12-10] MEDS: NOREPINEPHRINE 8 MG in SODIUM CHLORIDE 0.9% 242 ML IV PRN (22:18)
[2020-12-11] MEDS: PROPOFOL 100 ML IV PRN ×7 (00:12→22:02)
[2020-12-11] MEDS: FENTANYL PF 1,000 MCG in SODIUM CHLORIDE 0.9% 80 ML IV PRN ×3 (03:15→20:16)
[2020-12-11] MEDS: INSULIN LISPRO 100 UNITS/ML, PEN SQ-INSULIN SCH ×4 (03:31→20:12)
[2020-12-11 03:56] LABS: BASOPHILS % (AUTO) 0 % (0-1); EOSINOPHILS % (AUTO) 3 % (1-7); LYMPHOCYTES % (AUTO) 15 % (22-44); MEAN CORPUSCULAR HEMOGLOBIN 28.1 pg (27.0-34.8); MEAN CORPUSCULAR HGB CONC 32.6 g/dL (32.4-35.8); MEAN PLATELET VOLUME 7.8 fL (7.4-10.4); MONOCYTES % (AUTO) 7 % (2-9); NEUTROPHILS % (AUTO) 74 % (42-75); PLATELET COUNT 277 x10^3/uL (130-400); RED BLOOD COUNT 5.28 x10^6/uL (3.82-5.3); RED CELL DISTRIBUTION WIDTH 14.8 % (9.6-15.2)
[2020-12-11 04:02] LABS: ANION GAP 10 mmol/L (5-15); CALCIUM 9.1 mg/dL (8.5-10.1); CHLORIDE 98 mmol/L (98-107); CREATININE 1.44 mg/dL (0.55-1.02)
[2020-12-11] MEDS: MEROPENEM 1 GM in SODIUM CHLORIDE 0.9% 100 ML IV SCH ×3 (06:21→22:03)
[2020-12-11] MEDS: LINEZOLID 20MG/ML ORAL SUSP PO SCH ×2 (06:23→18:57)
[2020-12-11] MEDS: NOREPINEPHRINE 8 MG in SODIUM CHLORIDE 0.9% 242 ML IV PRN (06:40)
[2020-12-11] MEDS: DOCUSATE 100 MG CAPSULE PO SCH (09:00)
[2020-12-11] MEDS: RIVAROXABAN 15 MG TABLET PO SCH ×2 (09:29→17:33)
[2020-12-11] MEDS: SODIUM CHLORIDE FLUSH 10ML SYR IVF SCH ×2 (09:29→20:08)
[2020-12-11] MEDS: MULTIVITAMIN 1 TABLET PO SCH (09:29)
[2020-12-11] MEDS: INSULIN GLARGINE 100 UNITS/ML, PEN SQ-INSULIN SCH ×2 (09:30→20:13)
[2020-12-11] MEDS: ARTIFICIAL TEARS OINT 3.5 GM OP SCH ×3 (16:06→22:43)
[2020-12-11] MEDS: VECURONIUM 50 MG in SODIUM CHLORIDE 0.9% 50 ML IV PRN ×2 (16:06→20:15)
[2020-12-11] MEDS ORDERED: VECURONIUM 10 MG ONE (16:07)
[2020-12-11] MEDS ORDERED: VECURONIUM 10 MG IVPush ONE (16:30)
[2020-12-12] MEDS: PROPOFOL 100 ML IV PRN ×4 (03:28→23:13)
[2020-12-12] MEDS: ARTIFICIAL TEARS OINT 3.5 GM OP SCH ×6 (03:29→22:20)
[2020-12-12] MEDS: INSULIN LISPRO 100 UNITS/ML, PEN SQ-INSULIN SCH ×4 (03:34→19:50)
[2020-12-12 03:56] LABS: BASOPHILS % (AUTO) 1 % (0-1); EOSINOPHILS % (AUTO) 2 % (1-7); LYMPHOCYTES % (AUTO) 7 % (22-44); MEAN CORPUSCULAR HEMOGLOBIN 28.8 pg (27.0-34.8); MEAN CORPUSCULAR HGB CONC 33.2 g/dL (32.4-35.8); MEAN PLATELET VOLUME 7.7 fL (7.4-10.4); MONOCYTES % (AUTO) 5 % (2-9); NEUTROPHILS % (AUTO) 86 % (42-75); PLATELET COUNT 183 x10^3/uL (130-400); RED BLOOD COUNT 4.92 x10^6/uL (3.82-5.3)
[2020-12-12 04:01] LABS: ANION GAP 5 mmol/L (5-15); CALCIUM 8.8 mg/dL (8.5-10.1); CHLORIDE 103 mmol/L (98-107); CREATININE 1.01 mg/dL (0.55-1.02); TRIGLYCERIDES 489 mg/dL (50-200)
[2020-12-12] MEDS: FENTANYL PF 1,000 MCG in SODIUM CHLORIDE 0.9% 80 ML IV PRN ×2 (04:20→18:08)
[2020-12-12] MEDS: VECURONIUM 50 MG in SODIUM CHLORIDE 0.9% 50 ML IV PRN ×2 (04:20→18:07)
[2020-12-12] MEDS: MEROPENEM 1 GM in SODIUM CHLORIDE 0.9% 100 ML IV SCH ×3 (05:24→22:21)
[2020-12-12] MEDS: LINEZOLID 20MG/ML ORAL SUSP PO SCH ×2 (05:24→16:29)
[2020-12-12] MEDS: INSULIN GLARGINE 100 UNITS/ML, PEN SQ-INSULIN SCH ×2 (06:42→18:06)
[2020-12-12 07:26] LABS: FIO2 100 %
[2020-12-12] MEDS: SODIUM CHLORIDE FLUSH 10ML SYR IVF SCH ×2 (08:37→19:49)
[2020-12-12] MEDS: RIVAROXABAN 15 MG TABLET PO SCH ×2 (08:37→16:30)
[2020-12-12] MEDS: MULTIVITAMIN 1 TABLET PO SCH (08:37)
[2020-12-12] MEDS: DOCUSATE 100 MG CAPSULE PO SCH (12:19)
[2020-12-13] MEDS: PROPOFOL 100 ML IV PRN ×6 (01:46→22:59)
[2020-12-13] MEDS: INSULIN LISPRO 100 UNITS/ML, PEN SQ-INSULIN SCH ×4 (03:00→20:23)
[2020-12-13] MEDS: ARTIFICIAL TEARS OINT 3.5 GM OP SCH ×6 (03:13→22:59)
[2020-12-13] MEDS: FENTANYL PF 1,000 MCG in SODIUM CHLORIDE 0.9% 80 ML IV PRN ×3 (03:14→23:00)
[2020-12-13] MEDS: VECURONIUM 50 MG in SODIUM CHLORIDE 0.9% 50 ML IV PRN ×2 (04:40→22:59)
[2020-12-13 04:54] LABS: BASOPHILS % (AUTO) 1 % (0-1); EOSINOPHILS % (AUTO) 7 % (1-7); LYMPHOCYTES % (AUTO) 17 % (22-44); MEAN CORPUSCULAR HEMOGLOBIN 28.7 pg (27.0-34.8); MEAN CORPUSCULAR HGB CONC 33.2 g/dL (32.4-35.8); MEAN PLATELET VOLUME 7.6 fL (7.4-10.4); MONOCYTES % (AUTO) 7 % (2-9); NEUTROPHILS % (AUTO) 68 % (42-75); PLATELET COUNT 142 x10^3/uL (130-400); RED BLOOD COUNT 4.37 x10^6/uL (3.82-5.3); RED CELL DISTRIBUTION WIDTH 15.2 % (9.6-15.2)
[2020-12-13 05:05] LABS: CHLORIDE 104 mmol/L (98-107)
[2020-12-13 05:09] LABS: ANION GAP 3 mmol/L (5-15); CALCIUM 9.1 mg/dL (8.5-10.1); CREATININE 0.78 mg/dL (0.55-1.02)
[2020-12-13] MEDS: LINEZOLID 20MG/ML ORAL SUSP PO SCH ×2 (06:16→16:44)
[2020-12-13] MEDS: MEROPENEM 1 GM in SODIUM CHLORIDE 0.9% 100 ML IV SCH ×3 (06:16→21:51)
[2020-12-13] MEDS: DOCUSATE 100 MG CAPSULE PO SCH (08:05)
[2020-12-13] MEDS: MULTIVITAMIN 1 TABLET PO SCH (08:05)
[2020-12-13] MEDS: RIVAROXABAN 15 MG TABLET PO SCH ×2 (08:05→16:44)
[2020-12-13] MEDS: SODIUM CHLORIDE FLUSH 10ML SYR IVF SCH ×2 (08:25→20:23)
[2020-12-13] MEDS: INSULIN GLARGINE 100 UNITS/ML, PEN SQ-INSULIN SCH ×2 (08:27→20:23)
[2020-12-14] MEDS: PROPOFOL 100 ML IV PRN ×4 (01:06→21:18)
[2020-12-14] MEDS: ARTIFICIAL TEARS OINT 3.5 GM OP SCH ×6 (02:20→22:15)
[2020-12-14] MEDS: INSULIN LISPRO 100 UNITS/ML, PEN SQ-INSULIN SCH ×4 (02:20→21:00)
[2020-12-14] MEDS: FENTANYL PF 1,000 MCG in SODIUM CHLORIDE 0.9% 80 ML IV PRN ×2 (03:04→12:38)
[2020-12-14] MEDS: VECURONIUM 50 MG in SODIUM CHLORIDE 0.9% 50 ML IV PRN (03:49)
[2020-12-14 04:52] LABS: MEAN CORPUSCULAR HGB CONC 33.2 g/dL (32.4-35.8); MEAN PLATELET VOLUME 7.7 fL (7.4-10.4); PLATELET COUNT 125 x10^3/uL (130-400); RED BLOOD COUNT 4.26 x10^6/uL (3.82-5.3); RED CELL DISTRIBUTION WIDTH 15.5 % (9.6-15.2)
[2020-12-14 05:01] LABS: CHLORIDE 104 mmol/L (98-107)
[2020-12-14 05:06] LABS: ANION GAP 2 mmol/L (5-15); CREATININE 0.64 mg/dL (0.55-1.02)
[2020-12-14] MEDS: MEROPENEM 1 GM in SODIUM CHLORIDE 0.9% 100 ML IV SCH ×3 (05:07→21:17)
[2020-12-14] MEDS: LINEZOLID 20MG/ML ORAL SUSP PO SCH ×2 (05:07→19:06)
[2020-12-14 05:46] LABS: BAND#(MANUAL) 0.09 x10^3/uL; BANDS%(MANUAL) 1 % (0-7); BASOS#(MANUAL) 0.09 x10^3/uL (0-0.1); BASOS% (MANUAL) 1 % (0-1); EOS#(MANUAL) 0.82 x10^3/uL (0.0-0.4); EOS% (MANUAL) 9 % (1-7); LYMPH#(MANUAL) 1.73 x10^3/uL (1-3.4); LYMPHS% (MANUAL) 19 % (22-44); MONOS#(MANUAL) 0.73 x10^3/uL (0.3-2.7); MONOS% (MANUAL) 8 % (2-9); SEG#(MANUAL) 5.64 x10^3/uL (1.8-6.8); SEGS% (MANUAL) 62 % (42-75)
[2020-12-14 05:47] LABS: <PLATELET ESTIMATE> ADEQUATE; <PLT MORPHOLOGY> NORMAL PLT MORPH; ANISOCYTOSIS 1+; POLYCHROMASIA 1+
[2020-12-14] MEDS: RIVAROXABAN 15 MG TABLET PO SCH ×2 (08:40→16:32)
[2020-12-14] MEDS: MULTIVITAMIN 1 TABLET PO SCH (09:20)
[2020-12-14] MEDS: DOCUSATE 100 MG CAPSULE PO SCH (09:21)
[2020-12-14] MEDS: SODIUM CHLORIDE FLUSH 10ML SYR IVF SCH ×2 (09:21→21:19)
[2020-12-14] MEDS: FUROSEMIDE 40 MG/4 ML IV SCH (09:21)
[2020-12-14] MEDS: INSULIN GLARGINE 100 UNITS/ML, PEN SQ-INSULIN SCH ×2 (09:39→21:34)
[2020-12-14] MEDS ORDERED: VECURONIUM 10 MG IVPush ONE (23:51)
[2020-12-14] MEDS ORDERED: VECURONIUM 10 MG ONE (23:55)
[2020-12-15] MEDS: PROPOFOL 100 ML IV PRN ×2 (01:02→04:46)
[2020-12-15] MEDS: VECURONIUM 10 MG IVPush PRN ×2 (02:09→03:36)
[2020-12-15] MEDS: ARTIFICIAL TEARS OINT 3.5 GM OP SCH ×4 (02:09→17:18)
[2020-12-15] MEDS: INSULIN LISPRO 100 UNITS/ML, PEN SQ-INSULIN SCH ×4 (02:12→20:49)
[2020-12-15] MEDS ORDERED: VECURONIUM 10 MG IVPush ONE (04:00)
[2020-12-15 05:07] LABS: BASOPHILS % (AUTO) 1 % (0-1); EOSINOPHILS % (AUTO) 8 % (1-7); LYMPHOCYTES % (AUTO) 17 % (22-44); MEAN CORPUSCULAR HEMOGLOBIN 28.5 pg (27.0-34.8); MEAN CORPUSCULAR HGB CONC 32.6 g/dL (32.4-35.8); MEAN PLATELET VOLUME 7.9 fL (7.4-10.4); MONOCYTES % (AUTO) 7 % (2-9); NEUTROPHILS % (AUTO) 67 % (42-75); PLATELET COUNT 115 x10^3/uL (130-400); RED BLOOD COUNT 4.23 x10^6/uL (3.82-5.3); RED CELL DISTRIBUTION WIDTH 15.5 % (9.6-15.2)
[2020-12-15 05:13] LABS: ALANINE AMINOTRANSFERASE 42 U/L (12-78); ALBUMIN 2.7 g/dL (3.4-5.0); ANION GAP 3 mmol/L (5-15); CALCIUM 9.2 mg/dL (8.5-10.1); CHLORIDE 103 mmol/L (98-107)
[2020-12-15 05:16] LABS: ALKALINE PHOSPHATASE 91 U/L (45-117); BILIRUBIN,TOTAL 0.4 mg/dL (0.2-1.0); CREATININE 0.65 mg/dL (0.55-1.02); TOTAL PROTEIN 5.9 g/dL (6.4-8.2); TRIGLYCERIDES 346 mg/dL (50-200)
[2020-12-15] MEDS: LINEZOLID 20MG/ML ORAL SUSP PO SCH ×2 (05:30→17:18)
[2020-12-15] MEDS: MEROPENEM 1 GM in SODIUM CHLORIDE 0.9% 100 ML IV SCH ×3 (05:30→21:48)
[2020-12-15] MEDS: MIDAZOLAM HCL 50 MG in SODIUM CHLORIDE 0.9% 40 ML IV PRN ×4 (06:33→20:53)
[2020-12-15] MEDS: FENTANYL PF 1,000 MCG in SODIUM CHLORIDE 0.9% 80 ML IV PRN ×2 (09:11→17:21)
[2020-12-15] MEDS: MULTIVITAMIN 1 TABLET PO SCH (09:24)
[2020-12-15] MEDS: DOCUSATE 100 MG CAPSULE PO SCH (09:24)
[2020-12-15] MEDS: RIVAROXABAN 15 MG TABLET PO SCH ×2 (09:24→17:18)
[2020-12-15] MEDS: PANTOPRAZOLE 40 MG IV IVPush SCH (09:25)
[2020-12-15] MEDS: SODIUM CHLORIDE FLUSH 10ML SYR IVF SCH ×2 (09:25→20:50)
[2020-12-15] MEDS: FUROSEMIDE 40 MG/4 ML IV SCH (09:25)
[2020-12-15] MEDS: INSULIN GLARGINE 100 UNITS/ML, PEN SQ-INSULIN SCH ×2 (09:26→20:50)
[2020-12-15] MEDS ORDERED: DEXTROSE 5% IV SCH (10:30)
[2020-12-15] MEDS ORDERED: VORICONAZOLE IV SCH (10:30)
--- NOTE | 2020-12-15 12:56 | NUR ---
TF per RD recs (update 12/15): Vital HP w/ end goal rate of 50 mL/hr (ON propofol); 60 mL/hr (OFF propofol) Addendum: 12/15/20 at [address] Amended: Links added.
[2020-12-15] MEDS ORDERED: ARTIFICIAL TEARS OINT 3.5 GM OP PRN (17:30)
[2020-12-16] MEDS: MIDAZOLAM HCL 50 MG in SODIUM CHLORIDE 0.9% 40 ML IV PRN ×4 (01:40→19:53)
[2020-12-16] MEDS: FENTANYL PF 1,000 MCG in SODIUM CHLORIDE 0.9% 80 ML IV PRN ×2 (01:40→09:36)
[2020-12-16] MEDS: NOREPINEPHRINE 8 MG in SODIUM CHLORIDE 0.9% 242 ML IV PRN (02:18)
[2020-12-16] MEDS: INSULIN LISPRO 100 UNITS/ML, PEN SQ-INSULIN SCH ×4 (02:35→20:46)
[2020-12-16 04:25] LABS: BASOPHILS % (AUTO) 1 % (0-1); EOSINOPHILS % (AUTO) 10 % (1-7); LYMPHOCYTES % (AUTO) 20 % (22-44); MEAN CORPUSCULAR HEMOGLOBIN 28.8 pg (27.0-34.8); MEAN CORPUSCULAR HGB CONC 32.9 g/dL (32.4-35.8); MEAN PLATELET VOLUME 7.7 fL (7.4-10.4); MONOCYTES % (AUTO) 5 % (2-9); NEUTROPHILS % (AUTO) 65 % (42-75); PLATELET COUNT 112 x10^3/uL (130-400); RED BLOOD COUNT 4.08 x10^6/uL (3.82-5.3); RED CELL DISTRIBUTION WIDTH 15.4 % (9.6-15.2)
[2020-12-16 04:33] LABS: ANION GAP 2 mmol/L (5-15); CALCIUM 8.5 mg/dL (8.5-10.1); CHLORIDE 107 mmol/L (98-107); CREATININE 0.74 mg/dL (0.55-1.02)
[2020-12-16] MEDS: LINEZOLID 600 MG TABLET NG SCH ×2 (05:42→17:26)
[2020-12-16] MEDS: MEROPENEM 1 GM in SODIUM CHLORIDE 0.9% 100 ML IV SCH ×3 (05:42→21:24)
[2020-12-16] MEDS ORDERED: POTASSIUM CHLORIDE 20 MEQ PACKET PO ONE (07:00)
[2020-12-16] MEDS: MULTIVITAMIN 1 TABLET PO SCH (07:49)
[2020-12-16] MEDS: RIVAROXABAN 15 MG TABLET PO SCH ×2 (07:49→17:26)
[2020-12-16] MEDS: PANTOPRAZOLE 40 MG IV IVPush SCH (07:49)
[2020-12-16] MEDS: FUROSEMIDE 40 MG/4 ML IV SCH (07:49)
[2020-12-16] MEDS: SODIUM CHLORIDE FLUSH 10ML SYR IVF SCH ×2 (07:49→20:43)
[2020-12-16] MEDS: DOCUSATE 50 MG/5 ML, 10ML UDC PO SCH (09:01)
[2020-12-16] MEDS: INSULIN GLARGINE 100 UNITS/ML, PEN SQ-INSULIN SCH ×2 (09:02→20:47)
[2020-12-16] MEDS ORDERED: VORICONAZOLE 400 MG in DEXTROSE 5% 100 ML IV SCH (10:30)
[2020-12-16] MEDS: FENTANYL PF 2,500 MCG in SODIUM CHLORIDE 0.9% 200 ML IV PRN (14:10)
[2020-12-17] MEDS: MIDAZOLAM HCL 50 MG in SODIUM CHLORIDE 0.9% 40 ML IV PRN ×2 (00:53→05:32)
[2020-12-17] MEDS: FENTANYL PF 2,500 MCG in SODIUM CHLORIDE 0.9% 200 ML IV PRN ×2 (00:53→18:27)
[2020-12-17] MEDS: INSULIN LISPRO 100 UNITS/ML, PEN SQ-INSULIN SCH ×4 (02:56→20:54)
[2020-12-17] MEDS: LINEZOLID 600 MG TABLET NG SCH ×2 (05:27→18:28)
[2020-12-17] MEDS: MEROPENEM 1 GM in SODIUM CHLORIDE 0.9% 100 ML IV SCH ×3 (05:27→21:59)
[2020-12-17 05:39] LABS: MEAN CORPUSCULAR HEMOGLOBIN 29.3 pg (27.0-34.8); MEAN PLATELET VOLUME 8.4 fL (7.4-10.4); PLATELET COUNT 117 x10^3/uL (130-400); RED BLOOD COUNT 3.67 x10^6/uL (3.82-5.3); RED CELL DISTRIBUTION WIDTH 15.7 % (9.6-15.2)
[2020-12-17 05:47] LABS: ANION GAP 3 mmol/L (5-15); CALCIUM 8.2 mg/dL (8.5-10.1); CHLORIDE 108 mmol/L (98-107); CREATININE 0.73 mg/dL (0.55-1.02)
[2020-12-17 06:08] LABS: ANISOCYTOSIS 1+; BAND#(MANUAL) 0.25 x10^3/uL; BANDS%(MANUAL) 3 % (0-7); EOS#(MANUAL) 1.07 x10^3/uL (0.0-0.4); EOS% (MANUAL) 13 % (1-7); LYMPH#(MANUAL) 2.13 x10^3/uL (1-3.4); LYMPHS% (MANUAL) 26 % (22-44); MONOS#(MANUAL) 0.49 x10^3/uL (0.3-2.7); MONOS% (MANUAL) 6 % (2-9); POLYCHROMASIA 1+; SEG#(MANUAL) 4.26 x10^3/uL (1.8-6.8); SEGS% (MANUAL) 52 % (42-75)
[2020-12-17 06:09] LABS: <PLATELET ESTIMATE> ADEQUATE; <PLT MORPHOLOGY> NORMAL PLT MORPH
[2020-12-17] MEDS: FUROSEMIDE 40 MG/4 ML IV SCH (08:14)
[2020-12-17] MEDS: MULTIVITAMIN 1 TABLET PO SCH (08:14)
[2020-12-17] MEDS: RIVAROXABAN 15 MG TABLET PO SCH ×2 (08:14→18:26)
[2020-12-17] MEDS: PANTOPRAZOLE 40 MG IV IVPush SCH (08:14)
[2020-12-17] MEDS: ACETAMINOPHEN 325 MG TABLET PO PRN (08:14)
[2020-12-17] MEDS: SODIUM CHLORIDE FLUSH 10ML SYR IVF SCH ×2 (08:15→20:51)
[2020-12-17] MEDS: INSULIN GLARGINE 100 UNITS/ML, PEN SQ-INSULIN SCH ×2 (08:15→20:54)
[2020-12-17] MEDS: DOCUSATE 50 MG/5 ML, 10ML UDC PO SCH (08:15)
[2020-12-17] MEDS ORDERED: METHYLNALTREXONE 12 MG/0.6 ML SYR SQ ONE ×2 (08:23→10:00)
[2020-12-17] MEDS: MIDAZOLAM HCL 100 MG in SODIUM CHLORIDE 0.9% 80 ML IV PRN ×2 (12:16→22:00)
[2020-12-18] MEDS: INSULIN LISPRO 100 UNITS/ML, PEN SQ-INSULIN SCH ×5 (03:00→22:22)
[2020-12-18 05:10] LABS: MEAN CORPUSCULAR HEMOGLOBIN 29.2 pg (27.0-34.8); MEAN CORPUSCULAR HGB CONC 32.6 g/dL (32.4-35.8); MEAN PLATELET VOLUME 8.2 fL (7.4-10.4); PLATELET COUNT 119 x10^3/uL (130-400); RED BLOOD COUNT 3.55 x10^6/uL (3.82-5.3); RED CELL DISTRIBUTION WIDTH 15.8 % (9.6-15.2)
[2020-12-18 05:18] LABS: CHLORIDE 111 mmol/L (98-107)
[2020-12-18 05:23] LABS: ANION GAP 2 mmol/L (5-15); CALCIUM 8.3 mg/dL (8.5-10.1); TRIGLYCERIDES 212 mg/dL (50-200)
[2020-12-18] MEDS: MIDAZOLAM HCL 100 MG in SODIUM CHLORIDE 0.9% 80 ML IV PRN ×2 (05:42→14:01)
[2020-12-18] MEDS: MEROPENEM 1 GM in SODIUM CHLORIDE 0.9% 100 ML IV SCH ×3 (05:42→22:19)
[2020-12-18] MEDS: LINEZOLID 600 MG TABLET NG SCH ×2 (05:42→17:16)
[2020-12-18 06:03] LABS: ANISOCYTOSIS 1+; BAND#(MANUAL) 0.31 x10^3/uL; BANDS%(MANUAL) 5 % (0-7); BASOS#(MANUAL) 0.06 x10^3/uL (0-0.1); BASOS% (MANUAL) 1 % (0-1); EOS#(MANUAL) 0.87 x10^3/uL (0.0-0.4); EOS% (MANUAL) 14 % (1-7); LYMPH#(MANUAL) 1.36 x10^3/uL (1-3.4); LYMPHS% (MANUAL) 22 % (22-44); MONOS% (MANUAL) 8 % (2-9); POLYCHROMASIA 1+; SEGS% (MANUAL) 50 % (42-75)
[2020-12-18 06:04] LABS: <PLATELET ESTIMATE> DECREASED; <PLT MORPHOLOGY> NORMAL PLT MORPH
[2020-12-18] MEDS: MULTIVITAMIN 1 TABLET PO SCH (09:11)
[2020-12-18] MEDS: PANTOPRAZOLE 40 MG IV IVPush SCH (09:11)
[2020-12-18] MEDS: SODIUM CHLORIDE FLUSH 10ML SYR IVF SCH ×2 (09:11→21:55)
[2020-12-18] MEDS: DOCUSATE 50 MG/5 ML, 10ML UDC PO SCH (09:11)
[2020-12-18] MEDS: RIVAROXABAN 15 MG TABLET PO SCH ×2 (09:11→17:16)
[2020-12-18] MEDS ORDERED: FUROSEMIDE 20 MG/2 ML ONE (09:50)
[2020-12-18] MEDS: FUROSEMIDE 40 MG/4 ML IV SCH (12:12)
[2020-12-18] MEDS: INSULIN GLARGINE 100 UNITS/ML, PEN SQ-INSULIN SCH ×2 (12:23→22:25)
[2020-12-18] MEDS: FENTANYL PF 2,500 MCG in SODIUM CHLORIDE 0.9% 200 ML IV PRN (16:00)
[2020-12-19] MEDS: MIDAZOLAM HCL 100 MG in SODIUM CHLORIDE 0.9% 80 ML IV PRN ×3 (03:18→23:36)
[2020-12-19] MEDS: MEROPENEM 1 GM in SODIUM CHLORIDE 0.9% 100 ML IV SCH (04:56)
[2020-12-19 05:31] LABS: CALCIUM 8.4 mg/dL (8.5-10.1); CHLORIDE 111 mmol/L (98-107); CREATININE 0.44 mg/dL (0.55-1.02)
[2020-12-19 05:33] LABS: MEAN CORPUSCULAR HEMOGLOBIN 29.3 pg (27.0-34.8); MEAN CORPUSCULAR HGB CONC 32.4 g/dL (32.4-35.8); MEAN PLATELET VOLUME 8.2 fL (7.4-10.4); PLATELET COUNT 136 x10^3/uL (130-400); RED BLOOD COUNT 3.68 x10^6/uL (3.82-5.3); RED CELL DISTRIBUTION WIDTH 17.1 % (9.6-15.2)
[2020-12-19 05:50] LABS: ANION GAP 4 mmol/L (5-15)
[2020-12-19] MEDS: INSULIN LISPRO 100 UNITS/ML, PEN SQ-INSULIN SCH ×4 (06:07→23:32)
[2020-12-19] MEDS: LINEZOLID 600 MG TABLET NG SCH (06:16)
[2020-12-19 07:33] LABS: <PLATELET ESTIMATE> ADEQUATE; <PLT MORPHOLOGY> NORMAL PLT MORPH; ANISOCYTOSIS 1+; BAND#(MANUAL) 0.26 x10^3/uL; BANDS%(MANUAL) 4 % (0-7); EOS#(MANUAL) 1.52 x10^3/uL (0.0-0.4); EOS% (MANUAL) 23 % (1-7); LYMPH#(MANUAL) 0.73 x10^3/uL (1-3.4); LYMPHS% (MANUAL) 11 % (22-44); METAMYELOCYTES# (MANUAL) 0.13 x10^3/uL (0-0); METAMYELOCYTES% (MANUAL) 2 % (0-1); MONOS#(MANUAL) 0.46 x10^3/uL (0.3-2.7); MONOS% (MANUAL) 7 % (2-9); POLYCHROMASIA 1+; SEGS% (MANUAL) 53 % (42-75)
[2020-12-19] MEDS: PANTOPRAZOLE 40 MG IV IVPush SCH (09:02)
[2020-12-19] MEDS: SODIUM CHLORIDE FLUSH 10ML SYR IVF SCH ×2 (09:03→21:52)
[2020-12-19] MEDS: FUROSEMIDE 40 MG/4 ML IV SCH (09:03)
[2020-12-19] MEDS: DOCUSATE 50 MG/5 ML, 10ML UDC PO SCH (09:03)
[2020-12-19] MEDS: MULTIVITAMIN 1 TABLET PO SCH (09:03)
[2020-12-19] MEDS: RIVAROXABAN 15 MG TABLET PO SCH ×2 (09:03→17:59)
[2020-12-19] MEDS: INSULIN GLARGINE 100 UNITS/ML, PEN SQ-INSULIN SCH ×2 (12:03→23:32)
[2020-12-19] MEDS: FENTANYL PF 2,500 MCG in SODIUM CHLORIDE 0.9% 200 ML IV PRN (18:00)
[2020-12-19] MEDS: ACETAMINOPHEN 325 MG TABLET PO PRN (20:27)
[2020-12-20 04:48] LABS: BASOPHILS % (AUTO) 1 % (0-1); EOSINOPHILS % (AUTO) 20 % (1-7); LYMPHOCYTES % (AUTO) 25 % (22-44); MEAN CORPUSCULAR HEMOGLOBIN 29.3 pg (27.0-34.8); MEAN CORPUSCULAR HGB CONC 32.3 g/dL (32.4-35.8); MEAN PLATELET VOLUME 7.9 fL (7.4-10.4); MONOCYTES % (AUTO) 9 % (2-9); NEUTROPHILS % (AUTO) 46 % (42-75); PLATELET COUNT 153 x10^3/uL (130-400); RED BLOOD COUNT 3.65 x10^6/uL (3.82-5.3); RED CELL DISTRIBUTION WIDTH 17.1 % (9.6-15.2)
[2020-12-20 05:21] LABS: CALCIUM 8.6 mg/dL (8.5-10.1); CREATININE 0.48 mg/dL (0.55-1.02)
[2020-12-20 05:49] LABS: ANION GAP 0 mmol/L (5-15); CHLORIDE 110 mmol/L (98-107)
[2020-12-20] MEDS: INSULIN LISPRO 100 UNITS/ML, PEN SQ-INSULIN SCH ×4 (06:20→22:30)
[2020-12-20] MEDS: SODIUM CHLORIDE FLUSH 10ML SYR IVF SCH ×2 (08:29→19:46)
[2020-12-20] MEDS: MIDAZOLAM HCL 100 MG in SODIUM CHLORIDE 0.9% 80 ML IV PRN ×2 (08:57→19:47)
[2020-12-20] MEDS: MULTIVITAMIN 1 TABLET PO SCH (08:58)
[2020-12-20] MEDS: DOCUSATE 50 MG/5 ML, 10ML UDC PO SCH (08:58)
[2020-12-20] MEDS: PANTOPRAZOLE 40 MG IV IVPush SCH (08:58)
[2020-12-20] MEDS: FENTANYL PF 2,500 MCG in SODIUM CHLORIDE 0.9% 200 ML IV PRN ×2 (08:58→22:43)
[2020-12-20] MEDS: RIVAROXABAN 15 MG TABLET PO SCH ×2 (08:58→17:15)
[2020-12-20] MEDS: FUROSEMIDE 40 MG/4 ML IV SCH (08:58)
[2020-12-20] MEDS: INSULIN GLARGINE 100 UNITS/ML, PEN SQ-INSULIN SCH ×2 (11:00→22:31)
[2020-12-21] MEDS: INSULIN LISPRO 100 UNITS/ML, PEN SQ-INSULIN SCH ×4 (04:24→22:53)
[2020-12-21 04:44] LABS: MEAN CORPUSCULAR HEMOGLOBIN 29.4 pg (27.0-34.8); MEAN CORPUSCULAR HGB CONC 32.2 g/dL (32.4-35.8); PLATELET COUNT 157 x10^3/uL (130-400); RED BLOOD COUNT 3.42 x10^6/uL (3.82-5.3); RED CELL DISTRIBUTION WIDTH 17.4 % (9.6-15.2)
[2020-12-21 04:48] LABS: ANION GAP 0 mmol/L (5-15); CALCIUM 8.6 mg/dL (8.5-10.1); CHLORIDE 107 mmol/L (98-107); CREATININE 0.41 mg/dL (0.55-1.02)
[2020-12-21 04:49] LABS: TRIGLYCERIDES 213 mg/dL (50-200)
[2020-12-21 05:09] LABS: BAND#(MANUAL) 0.23 x10^3/uL; BANDS%(MANUAL) 3 % (0-7); EOS#(MANUAL) 1.43 x10^3/uL (0.0-0.4); EOS% (MANUAL) 19 % (1-7); LYMPH#(MANUAL) 1.35 x10^3/uL (1-3.4); LYMPHS% (MANUAL) 18 % (22-44); MONOS#(MANUAL) 0.75 x10^3/uL (0.3-2.7); MONOS% (MANUAL) 10 % (2-9); SEG#(MANUAL) 3.75 x10^3/uL (1.8-6.8); SEGS% (MANUAL) 50 % (42-75)
[2020-12-21 05:11] LABS: ANISOCYTOSIS 1+; BASOPHILLIC STIPPLING 1+; POLYCHROMASIA 1+
[2020-12-21 05:12] LABS: <PLATELET ESTIMATE> ADEQUATE; <PLT MORPHOLOGY> NORMAL PLT MORPH
[2020-12-21] MEDS: RIVAROXABAN 15 MG TABLET PO SCH ×2 (08:58→17:56)
[2020-12-21] MEDS: MULTIVITAMIN 1 TABLET PO SCH (08:58)
[2020-12-21] MEDS: PANTOPRAZOLE 40 MG IV IVPush SCH (08:58)
[2020-12-21] MEDS: FUROSEMIDE 40 MG/4 ML IV SCH (08:58)
[2020-12-21] MEDS: SODIUM CHLORIDE FLUSH 10ML SYR IVF SCH ×2 (08:59→22:19)
[2020-12-21] MEDS: DOCUSATE 50 MG/5 ML, 10ML UDC PO SCH (08:59)
[2020-12-21] MEDS: MIDAZOLAM HCL 100 MG in SODIUM CHLORIDE 0.9% 80 ML IV PRN ×2 (08:59→22:19)
[2020-12-21] MEDS: FENTANYL PF 2,500 MCG in SODIUM CHLORIDE 0.9% 200 ML IV PRN ×2 (11:01→23:33)
[2020-12-21] MEDS: INSULIN GLARGINE 100 UNITS/ML, PEN SQ-INSULIN SCH ×2 (11:07→22:53)
[2020-12-21] MEDS: PROPOFOL 100 ML IV PRN ×2 (13:46→17:57)
[2020-12-22] MEDS: PROPOFOL 100 ML IV PRN ×5 (00:49→20:57)
[2020-12-22] MEDS: INSULIN LISPRO 100 UNITS/ML, PEN SQ-INSULIN SCH ×4 (05:00→22:25)
[2020-12-22 05:05] LABS: MEAN CORPUSCULAR HEMOGLOBIN 29.8 pg (27.0-34.8); MEAN CORPUSCULAR HGB CONC 32.7 g/dL (32.4-35.8); MEAN PLATELET VOLUME 7.7 fL (7.4-10.4); PLATELET COUNT 183 x10^3/uL (130-400); RED BLOOD COUNT 3.32 x10^6/uL (3.82-5.3); RED CELL DISTRIBUTION WIDTH 17.2 % (9.6-15.2)
[2020-12-22 05:11] LABS: CALCIUM 8.1 mg/dL (8.5-10.1); CREATININE 0.48 mg/dL (0.55-1.02)
[2020-12-22 05:19] LABS: ANION GAP 2 mmol/L (5-15); CHLORIDE 104 mmol/L (98-107)
[2020-12-22 06:15] LABS: BAND#(MANUAL) 1.53 x10^3/uL; BANDS%(MANUAL) 18 % (0-7); EOS#(MANUAL) 1.02 x10^3/uL (0.0-0.4); EOS% (MANUAL) 12 % (1-7); LYMPH#(MANUAL) 1.87 x10^3/uL (1-3.4); LYMPHS% (MANUAL) 22 % (22-44); SEG#(MANUAL) 4.08 x10^3/uL (1.8-6.8); SEGS% (MANUAL) 48 % (42-75)
[2020-12-22 06:16] LABS: <PLATELET ESTIMATE> ADEQUATE; <PLT MORPHOLOGY> NORMAL PLT MORPH; ANISOCYTOSIS 1+; POLYCHROMASIA 1+
[2020-12-22] MEDS: PANTOPRAZOLE 40 MG IV IVPush SCH (09:08)
[2020-12-22] MEDS: DOCUSATE 50 MG/5 ML, 10ML UDC PO SCH (09:08)
[2020-12-22] MEDS: RIVAROXABAN 15 MG TABLET PO SCH ×2 (09:08→17:01)
[2020-12-22] MEDS: FUROSEMIDE 40 MG/4 ML IV SCH (09:09)
[2020-12-22] MEDS: SODIUM CHLORIDE FLUSH 10ML SYR IVF SCH ×2 (09:09→20:57)
[2020-12-22] MEDS: MULTIVITAMIN 1 TABLET PO SCH (09:13)
[2020-12-22] MEDS: INSULIN GLARGINE 100 UNITS/ML, PEN SQ-INSULIN SCH ×2 (11:40→22:25)
[2020-12-22] MEDS: FENTANYL PF 2,500 MCG in SODIUM CHLORIDE 0.9% 200 ML IV PRN (14:45)
[2020-12-22] MEDS: MIDAZOLAM HCL 100 MG in SODIUM CHLORIDE 0.9% 80 ML IV PRN (22:25)
[2020-12-23] MEDS: PROPOFOL 100 ML IV PRN ×6 (00:59→23:55)
[2020-12-23] MEDS: INSULIN LISPRO 100 UNITS/ML, PEN SQ-INSULIN SCH ×4 (05:00→23:00)
[2020-12-23 05:23] LABS: MEAN CORPUSCULAR HEMOGLOBIN 29.3 pg (27.0-34.8); MEAN CORPUSCULAR HGB CONC 32.5 g/dL (32.4-35.8); MEAN PLATELET VOLUME 7.8 fL (7.4-10.4); PLATELET COUNT 197 x10^3/uL (130-400); RED BLOOD COUNT 3.29 x10^6/uL (3.82-5.3)
[2020-12-23 05:31] LABS: CALCIUM 8.2 mg/dL (8.5-10.1); CREATININE 0.48 mg/dL (0.55-1.02)
[2020-12-23 05:56] LABS: BAND#(MANUAL) 0.24 x10^3/uL; BANDS%(MANUAL) 3 % (0-7); EOS#(MANUAL) 0.89 x10^3/uL (0.0-0.4); EOS% (MANUAL) 11 % (1-7); LYMPH#(MANUAL) 1.94 x10^3/uL (1-3.4); LYMPHS% (MANUAL) 24 % (22-44); MONOS#(MANUAL) 0.16 x10^3/uL (0.3-2.7); MONOS% (MANUAL) 2 % (2-9); SEG#(MANUAL) 4.86 x10^3/uL (1.8-6.8); SEGS% (MANUAL) 60 % (42-75)
[2020-12-23 05:57] LABS: ANISOCYTOSIS 1+; POLYCHROMASIA 1+
[2020-12-23 05:58] LABS: <PLATELET ESTIMATE> ADEQUATE; <PLT MORPHOLOGY> NORMAL PLT MORPH; TEAR DROPS 1+
[2020-12-23] MEDS: FENTANYL PF 2,500 MCG in SODIUM CHLORIDE 0.9% 200 ML IV PRN ×2 (06:01→20:52)
[2020-12-23 06:08] LABS: ANION GAP 3 mmol/L (5-15); CHLORIDE 102 mmol/L (98-107)
[2020-12-23] MEDS: SODIUM CHLORIDE FLUSH 10ML SYR IVF SCH ×2 (08:29→20:52)
[2020-12-23] MEDS: PANTOPRAZOLE 40 MG IV IVPush SCH (08:29)
[2020-12-23] MEDS: POTASSIUM CHLORIDE 20 MEQ PACKET PO SCH ×2 (08:31→13:37)
[2020-12-23] MEDS: MULTIVITAMIN 1 TABLET PO SCH (08:34)
[2020-12-23] MEDS: RIVAROXABAN 15 MG TABLET PO SCH ×2 (08:34→17:05)
[2020-12-23] MEDS: FUROSEMIDE 40 MG/4 ML IV SCH (08:34)
[2020-12-23] MEDS: DOCUSATE 50 MG/5 ML, 10ML UDC PO SCH (08:34)
[2020-12-23] MEDS: INSULIN GLARGINE 100 UNITS/ML, PEN SQ-INSULIN SCH ×2 (10:41→23:28)
[2020-12-23] MEDS: MIDAZOLAM HCL 100 MG in SODIUM CHLORIDE 0.9% 80 ML IV PRN (14:59)
[2020-12-24] MEDS: ACETAMINOPHEN 325 MG TABLET PO PRN ×3 (03:20→13:04)
[2020-12-24] MEDS: MIDAZOLAM HCL 100 MG in SODIUM CHLORIDE 0.9% 80 ML IV PRN (03:21)
[2020-12-24] MEDS: PROPOFOL 100 ML IV PRN (03:23)
[2020-12-24 04:52] LABS: MEAN CORPUSCULAR HEMOGLOBIN 29.7 pg (27.0-34.8); MEAN CORPUSCULAR HGB CONC 32.3 g/dL (32.4-35.8); MEAN PLATELET VOLUME 8.2 fL (7.4-10.4); PLATELET COUNT 244 x10^3/uL (130-400); RED BLOOD COUNT 3.47 x10^6/uL (3.82-5.3)
[2020-12-24 04:56] LABS: ANION GAP 2 mmol/L (5-15); CALCIUM 7.9 mg/dL (8.5-10.1); CHLORIDE 102 mmol/L (98-107); CREATININE 0.64 mg/dL (0.55-1.02); TRIGLYCERIDES 333 mg/dL (50-200)
[2020-12-24] MEDS: INSULIN LISPRO 100 UNITS/ML, PEN SQ-INSULIN SCH ×3 (05:46→16:55)
[2020-12-24 06:06] LABS: BAND#(MANUAL) 0.33 x10^3/uL; BANDS%(MANUAL) 3 % (0-7); BASOS#(MANUAL) 0.11 x10^3/uL (0-0.1); BASOS% (MANUAL) 1 % (0-1); EOS#(MANUAL) 1.11 x10^3/uL (0.0-0.4); EOS% (MANUAL) 10 % (1-7); LYMPHS% (MANUAL) 27 % (22-44); METAMYELOCYTES# (MANUAL) 0.11 x10^3/uL (0-0); METAMYELOCYTES% (MANUAL) 1 % (0-1); MONOS#(MANUAL) 0.33 x10^3/uL (0.3-2.7); MONOS% (MANUAL) 3 % (2-9); SEG#(MANUAL) 6.11 x10^3/uL (1.8-6.8); SEGS% (MANUAL) 55 % (42-75)
[2020-12-24 06:07] LABS: <PLATELET ESTIMATE> ADEQUATE; <PLT MORPHOLOGY> NORMAL PLT MORPH; ANISOCYTOSIS 1+; POLYCHROMASIA 1+; STOMATOCYTES 1+
[2020-12-24] MEDS: MULTIVITAMIN 1 TABLET PO SCH (08:26)
[2020-12-24] MEDS: RIVAROXABAN 15 MG TABLET PO SCH ×2 (08:26→16:52)
[2020-12-24] MEDS: DOCUSATE 50 MG/5 ML, 10ML UDC PO SCH (08:26)
[2020-12-24] MEDS: PANTOPRAZOLE 40 MG IV IVPush SCH (08:26)
[2020-12-24] MEDS: SODIUM CHLORIDE FLUSH 10ML SYR IVF SCH (08:27)
[2020-12-24] MEDS: FUROSEMIDE 40 MG/4 ML IV SCH (08:27)
[2020-12-24 09:22] LABS: MICROSCOPIC INDICATED
[2020-12-24] MEDS: DEXMEDETOMIDINE 1,000 MCG in SODIUM CHLORIDE 0.9% 240 ML IV PRN (09:48)
[2020-12-24] MEDS: FENTANYL PF 2,500 MCG in SODIUM CHLORIDE 0.9% 200 ML IV PRN (10:56)
[2020-12-24] MEDS: INSULIN GLARGINE 100 UNITS/ML, PEN SQ-INSULIN SCH (11:26)
[2020-12-24] MEDS ORDERED: EPINEPHRINE SYRINGE 0.1 MG/ML, 10ML ONE ×2 (18:32→20:27)
[2020-12-24] MEDS ORDERED: SODIUM CHLORIDE 0.9%, 250ML ONE (18:32)
[2020-12-24] MEDS ORDERED: CODE BLUE RESPONSE XX ONE (18:32)
[2020-12-24] MEDS ORDERED: EPINEPHRINE 1 MG/ML, 30ML ONE (18:32)
[2020-12-24] MEDS ORDERED: SODIUM BICARB 8.4%, 50ML SYRINGE ONE (18:32)
[2020-12-24] MEDS ORDERED: SODIUM BICARB 7.5%, 50ML SYRINGE ONE (20:27)
[2020-12-29] MEDS ORDERED: RIVAROXABAN 20 MG TABLET PO SCH (17:00)
== END 2020-12-25 01:56 | DRG 207 ==
LOC: ED 21:22 → EDIP 21:32 → 5SO 23:38 → CCU 12-01 13:54
PROVIDERS: ADMIT Internal Medicine; ATTEND Internal Medicine
PROC: XW033E5 Introduction of Remdesivir Anti-infective into Peripheral Vein, Percutaneous Approach, New Technology Group 5 (ICD-10-PCS; 2020-11-24)
PROC: XW033H5 Introduction of Tocilizumab into Peripheral Vein, Percutaneous Approach, New Technology Group 5 (ICD-10-PCS; 2020-11-24)
PROC: 02HV33Z Insertion of Infusion Device into Superior Vena Cava, Percutaneous Approach (ICD-10-PCS; 2020-11-26)
PROC: B548ZZA Ultrasonography of Superior Vena Cava, Guidance (ICD-10-PCS; 2020-11-26)
PROC: 5A09357 Assistance with Respiratory Ventilation, Less than 24 Consecutive Hours, Continuous Positive Airway Pressure (ICD-10-PCS; 2020-12-01)
PROC: 5A0935A Assistance with Respiratory Ventilation, Less than 24 Consecutive Hours, High Flow/Velocity Cannula (ICD-10-PCS; 2020-12-02)
PROC: 5A09357 Assistance with Respiratory Ventilation, Less than 24 Consecutive Hours, Continuous Positive Airway Pressure (ICD-10-PCS; 2020-12-02)
PROC: 5A09357 Assistance with Respiratory Ventilation, Less than 24 Consecutive Hours, Continuous Positive Airway Pressure (ICD-10-PCS; 2020-12-03)
PROC: 5A0935A Assistance with Respiratory Ventilation, Less than 24 Consecutive Hours, High Flow/Velocity Cannula (ICD-10-PCS; 2020-12-03)
PROC: 5A0935A Assistance with Respiratory Ventilation, Less than 24 Consecutive Hours, High Flow/Velocity Cannula (ICD-10-PCS; 2020-12-04)
PROC: 5A09357 Assistance with Respiratory Ventilation, Less than 24 Consecutive Hours, Continuous Positive Airway Pressure (ICD-10-PCS; 2020-12-04)
PROC: 5A09357 Assistance with Respiratory Ventilation, Less than 24 Consecutive Hours, Continuous Positive Airway Pressure (ICD-10-PCS; 2020-12-05)
PROC: 5A0935A Assistance with Respiratory Ventilation, Less than 24 Consecutive Hours, High Flow/Velocity Cannula (ICD-10-PCS; 2020-12-06)
PROC: 5A1955Z Respiratory Ventilation, Greater than 96 Consecutive Hours (ICD-10-PCS; principal; 2020-12-09)
PROC: 0BH17EZ Insertion of Endotracheal Airway into Trachea, Via Natural or Artificial Opening (ICD-10-PCS; 2020-12-09)
PROC: 02HV33Z Insertion of Infusion Device into Superior Vena Cava, Percutaneous Approach (ICD-10-PCS; 2020-12-09)
PROC: B548ZZA Ultrasonography of Superior Vena Cava, Guidance (ICD-10-PCS; 2020-12-09)
DX: U07.1 COVID-19 (principal); J12.82 Pneumonia due to coronavirus disease 2019; J96.01 Acute respiratory failure with hypoxia; G93.41 Metabolic encephalopathy; A41.89 Other specified sepsis; E87.1 Hypo-osmolality and hyponatremia; Z68.41 Body mass index [BMI] 40.0-44.9, adult; Z99.11 Dependence on respirator [ventilator] status; E87.0 Hyperosmolality and hypernatremia; E66.01 Morbid (severe) obesity due to excess calories; D64.9 Anemia, unspecified; I50.9 Heart failure, unspecified; G83.9 Paralytic syndrome, unspecified; E88.09 Other disorders of plasma-protein metabolism, not elsewhere classified; E78.1 Pure hyperglyceridemia; E11.65 Type 2 diabetes mellitus with hyperglycemia; D69.6 Thrombocytopenia, unspecified; R74.01 Elevation of levels of liver transaminase levels; F19.10 Other psychoactive substance abuse, uncomplicated; I48.91 Unspecified atrial fibrillation; Z86.74 Personal history of sudden cardiac arrest; Z79.899 Other long term (current) drug therapy; Z91.012 Allergy to eggs
CPT/HCPCS: 36415; 36573; 36600; 71045; 74018; 80048; 80053; 81001; 81003; 82533; 82728; 82803; 82962; 83036; 83615; 83735; 83880; 84145; 84478; 84484; 85025; 85379; 85384; 85651; 86140; 87040; 87070; 87077; 87081; 87086; 87106; 87107; 87186; 87205; 87305; 93005; 93970; 94002; 94003; 94660; 96365; 96366; 96375; G0378; J0456; J1100; J1650; J1940; J2020; J2185; J2250; J2405; J2704; J3010; J3465; J7030; J7060; C1751; C9113; J0171; J1815; J2060; J2270; J3262; J7050